=== PATIENT | female | born 1940 | race Caucasian/White ===

== ENCOUNTER 2020-03-04 09:23 | Outpatient (REF) | payer MEDICARE, OTHER, SELFPAY ==
[2020-03-04 11:41] LABS: Estimated Average Glucose 111 mg/dL; Hemoglobin A1c % 5.5 %
[2020-03-04 11:54] LABS: Alanine Aminotransferase 12 U/L (0-31); Albumin Level 3.5 g/dL (3.5-5.0); Alkaline Phosphatase 87 U/L (39-117); Anion Gap 17 (12-20); Aspartate Amino Transferase 21 U/L (5-31); Bilirubin Total 0.4 mg/dL (0.0-1.0); Blood Urea Nitrogen 36 mg/dL (9-16); Calcium 8.7 mg/dL (8.4-10.2); Carbon Dioxide 18 mmol/L (22-29); Chloride 110 mmol/L (96-108); Cholesterol 117 mg/dL; Estimated Glomerular Filt Rate 34; Glucose Fasting 97 mg/dL (60-99); HDL Cholesterol 41 mg/dL; LDL Cholesterol Calculated 62 mg/dl; Potassium 4.6 mmol/l (3.3-5.1); Sodium 140 mmol/L (135-145); Total Protein 6.8 g/dL (6.5-8.0); Triglycerides 71 mg/dL
== END 2020-03-04 09:24 | disposition home or self-care (01) ==
LOC: HO.HMGCLDS 09:23
PROVIDERS: PCP Internal Medicine; Visit Provider Internal Medicine
DX: I10 Essential (primary) hypertension (principal); I25.2 Old myocardial infarction; E11.9 Type 2 diabetes mellitus without complications; Z78.0 Asymptomatic menopausal state; Z87.19 Personal history of other diseases of the digestive system
CPT/HCPCS: 80053; 80061; 82306; 83036

== ENCOUNTER → 2020-05-10 15:50 | Outpatient (BNVA) | payer MEDICARE, SELFPAY | PROVIDERS: PCP Internal Medicine; Visit Provider Urology | DX: C67.9 Malignant neoplasm of bladder, unspecified (principal); Z87.442 Personal history of urinary calculi | CPT/HCPCS: Q3014 ==

== ENCOUNTER 2020-09-27 20:23 | Observation (INO) | payer OTHER, SELFPAY ==
--- NOTE | ~2020-09-27 | CT_ITS ---
EXAMINATION: CT HEAD WITHOUT CONTRAST CT CERVICAL SPINE WITHOUT CONTRAST CLINICAL INFORMATION: Neck pain. Syncope. COMPARISON: None. TECHNIQUE: Imaging was performed from the skull base to vertex without intravenous administration of contrast. In addition, helical noncontrast CT imaging was acquired through the cervical spine and source images were reviewed along with axial reconstructions and sagittal and coronal MPRs. [This CT examination was performed using dose optimization techniques as appropriate, variously including the following: *Automated exposure control *Adjustment of mA and/or kV according to patient size (this includes techniques or standardized protocols for targeted exams where dose is matched to indication/reason for exam; i.e. extremities or head) *Use of iterative reconstruction technique] DLP: 1608 mGy-cm FINDINGS: HEAD: No intracranial mass, hemorrhage, or midline shift is visualized. There is age-appropriate mild atrophy with prominence of the ventricles and the sulci . There are vascular calcification of the internal carotid arteries bilaterally. No extra-axial collections are identified. The paranasal sinuses and mastoid air cells are well aerated. CERVICAL SPINE: There is no evidence of acute cervical spine fracture. Vertebral bodies remain normal in height. Cervical vertebrae have normal alignment. There is advanced multilevel degenerative spondylosis of the cervical spine with disc height narrowing and endplate spurs and facet joint arthrosis. There is bony fusion C5-C7 vertebral bodies. 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 Posterior spur encroaches into the neural foramina impressing on the right anterior aspect of the thecal sac and narrowing the central canal at C5-C6. The right neural foramina is narrowed at C4-C5, C5-C6 by this posterior spur as well as the facet joint arthrosis No pre- or paravertebral soft tissue abnormality is identified. Limited assessment of the lung apices is unremarkable. CT/CT cervical spine wo con IMPRESSION: 1. No acute intracranial pathology. 2. No CT evidence of acute cervical spine fracture or traumatic subluxation
--- NOTE | ~2020-09-27 | XR_ITS ---
EXAMINATION: PORTABLE CHEST 1 VIEW CLINICAL INFORMATION: syncope . COMPARISON: 04/20/2016. TECHNIQUE: Portable frontal view of the chest was obtained. FINDINGS: Lungs well-expanded with minimal linear basilar atelectasis. No superimposed focal infiltrate, effusion, edema, or pneumothorax. Cardiac and mediastinal silhouettes within normal limits for this portable technique. XR/XR chest 1V IMPRESSION: No evidence of acute disease.
[2020-09-27 20:28] VITALS: BP 135/43; PULSE 75; RESP 24; TEMP 36.5; O2SAT 96; BMI 47.0
--- NOTE | 2020-09-27 20:55 | ECG_ITS ---
Test Reason : FALL Blood Pressure : / mmHG Vent. Rate : 073 BPM Atrial Rate : 073 BPM P-R Int : 156 ms QRS Dur : 080 ms QT Int : 378 ms P-R-T Axes : 028 -35 021 degrees QTc Int : 416 ms Normal sinus rhythm Left axis deviation Cannot rule out Anterior infarct (cited on or before 20-APR-2016) Abnormal ECG When compared with ECG of 10-OCT-2016 15:50, No significant change was found Referred By: Markel Juarez Electronically Signed By:KIKE HACKETT MD
--- NOTE | 2020-09-27 20:57 | ED_ITS ---
HPI - Syncope General Chief Complaint: Dizziness Stated Complaint: DIZZINESS,FALL,-LOC,-HS,-BACK/NECK PAIN,-THINNERS Time Seen by Provider: 09/27/20 20:55 Source: patient and EMS Mode of arrival: EMS Limitations: no limitations History of Present Illness HPI narrative: 80-year-old female came in by ambulance for evaluation after syncopal episode and fall. 80-year-old female came in for symptoms of lightheadedness and feeling that she is going to pass out, patient started to symptoms for the past 4 weeks after go tten her 2nd dose of COVID 19 vaccination last months. Patient yesterday was in the bathroom when she stood up and passed out patient refused to come to the hospital yesterday. Today patient was walking felt lightheadedness and very unsteady on her feet and patient fell down, patient decline losing consciousness but not sure if she lost this for a very short brief of time. Patient was able to ease her fall by using her hands, patient declined chest pain, shortness of breath. Patient documented that she hit the back of her head and the neck after she fell today complaining of some neck pain. Related Data Home Medications Medication Instructions Recorded Confirmed amlodipine 2.5 mg tablet 2.5 mg PO TID 02/26/20 09/27/20 metoprolol tartrate 50 mg tablet 50 mg PO BID 02/26/20 09/27/20 Previous Rx's Medication Instructions Recorded Juxta Compression wraps #2 ea NS 05/27/20 Allergies Allergy/AdvReac Type Severity Reaction Status Date / Time levofloxacin [From LEVAQUIN] AdvReac Intermediate MUSCLE/JOINT Verified 03/04/20 08:43 PAIN hydromorphone [Dilaudid] AdvReac Unknown vomiting Verified 03/04/20 08:43 Review of Systems Review of Systems: All other systems are reviewed and are negative Constitutional: Reports as per HPI and Reports no additional constitutional complaints Eyes: Reports as per HPI and Reports no additional eye complaints Reports system reviewed and no additional complaints, except as documented Cardiovascular: Reports as per HPI and Reports no additional cardiovascular complaints Respiratory: Reports as per HPI and Reports no additional respiratory complaints Gastrointestinal: Reports as per HPI and Reports no additional gastrointestinal complaints Genitourinary: Reports no additional female genitourinary complaints Musculoskeletal: Reports no additional musculoskeletal complaints Skin/Breast: Reports system reviewed and no additional complaints, except as docu Psychiatric: Reports no additional psychiatric complaints Endocrine: Reports no additional endocrine complaints Hematologic/Lymphatic: Reports no additional hematologic/lymphatic complaints Allergic/Immunologic: Reports no additional allergic/immunologic complaints Reports system reviewed and no additional complaints, except as documented and Reports Abnormal speech present [facility] Past Medical History Medical History Controlled diabetes mellitus type II without complication Essential hypertension History of acute cholecystitis History of kidney stones History of non-ST elevation myocardial infarction (NSTEMI) Invasive carcinoma of urinary bladder Postmenopausal Sore on leg Toenail deformity Surgical History S/P urological surgery Family History Family History Father Aneurysm Mother Non Hodgkin's lymphoma Son Hepatitis C Son No problems noted. Brother No problems noted. Brother No problems noted. Daughter No problems noted. Social History Social History Alcohol intake: never Smoking Status: Never smoker Advance Directives: No Advance Directives Information Provided: No Physical Exam Vital Signs: Vital Signs: Last Vital Signs Temp 97.7 F 09/27/20 20:28 Pulse 73 09/27/20 22:31 Resp 20 09/27/20 22:31 BP 128/49 L 09/27/20 22:31 Pulse Ox 96 09/27/20 22:31 Body Mass Index 47.0 Vital signs have been reviewed as appeared to be correct. Blood pressure normal. Heart rate normal. Respiration rate normal. Temperature normal. Oxygen saturation normal. Appearance: Alert. Oriented X3. No acute distress. Head: Normal external exam. Normocephalic. Atraumatic. No Meeks signs noted. No raccoon eyes noted Eyes: PERRLA. EOMI. Conjunctiva and sclera normal. Eyelids normal. ENT: TM's Normal. Pharynx normal. Uvula midline. Moist mucous membranes. No trismus noted. No drooling noted. No muffled voice noted. Neck: Normal inspection. Mild midnight cervical tenderness, no step-off, no deformity. No adenopathy. Thyroid Normal. No meningeal signs. No neck mass noted. CVS: Normal heart rate and rhythm. Heart sound normal. No murmurs noted. Pulses normal throughout. Respiratory: No respiratory distress. Painless inspiration. Breath sounds normal. No wheezes/rales/rhonchi noted. Chest nontender. No accessory muscle usage noted or decreased air movement noted. Abdomen: Soft and nontender. Bowel sounds normal in all 4 quadrants. No distention noted. No organomegaly noted. No visible injury noted. Back: No CVA tenderness. Full range of motion noted. Skin: Skin warm and dry. Normal skin color. Normal skin turgor. No rashes/lesions/lacerations noted. Extremities: Bilateral chronic stasis ulcers on bilateral lower legs. No cellulitic change. Neuro: Oriented X 3. No motor deficit. No sensory deficit. Reflexes normal. Course Course Course Narrative: Assessment and plan. 80-year-old female came in with multiple episodes of syncopal/near syncopal episode with falls. Patient will need to be admitted for cardiac monitoring for 24 hours. Initial labs are unremarkable. MDM - Syncope Lab Data Attestation: I reviewed the patient's lab results. Result diagrams: 09/27/20 21:45 09/27/20 21:45 Labs: Lab Results 09/27/20 09/27/20 09/27/20 Range/Units 21:45 21:45 21:45 WBC 12.0 H (4.8-10.8) X10*3/uL RBC 4.07 L (4.20-5.50) X10*6/uL Hgb 10.8 L (12.0-16.0) g/dl Hct 35.0 L (37-47) % MCV 86.0 (80-98) fL MCH 26.5 L (27.0-33.0) pg MCHC 30.9 L (31.0-35.0) g/dl RDW 15.3 (11.0-16.0) % Plt Count 209 (160-400) X10*3/uL MPV 9.0 L (9.4-12.3) fL Immature Gran % (Auto) 1.3 H (0.0-0.4) % Neut % (Auto) 81.2 H (45-73) % Lymph % (Auto) 7.8 L (20-40) % [place] % (Auto) 8.2 (2-11) % Eos % (Auto) 1.2 (0-4) % Baso % (Auto) 0.3 (0-2) % Lymph # (Auto) 0.9 L (1.2-4.9) X10*3/uL [place] # (Auto) 1.0 (0.1-1.2) X10*3/uL Eos # (Auto) 0.1 (0.0-0.4) X10*3/uL Baso # (Auto) 0.0 (0.0-0.2) X10*3/uL Abs Immat Gran (auto) 0.15 H (0.00-0.03) X10*3/uL Absolute Neuts (auto) 9.8 H (2.0-8.3) X10*3/uL Absolute Nucleated RBC 0.000 (0.0-0.012) X10*3/uL Nucleated RBC % (auto) 0.0 (0.0-0.2) /100WBC Sodium 137 (135-145) mmol/L Potassium 4.1 (3.3-5.1) mmol/L Chloride 107 (96-108) mmol/L Carbon Dioxide 22 (22-29) mmol/L Anion Gap 12 (12-20) BUN 31 H (9-16) mg/dL Creatinine 1.68 H (0.5-1.4) mg/dL Estim Creat Clear Calc 39.8 Estimated GFR 29 Random Glucose 143 H (60-115) mg/dL Calcium 8.8 (8.4-10.2) mg/dL Total Bilirubin 0.6 (0.0-1.0) mg/dL Direct Bilirubin 0.3 (0.0-0.5) mg/dL AST 29 (5-31) U/L ALT 23 (0-31) U/L Alkaline Phosphatase 81 (39-117) U/L Troponin I High Sens 5.2 (<3.5-17.0) ng/L B-Natriuretic Peptide (<100) pg/mL Total Protein 6.3 L (6.5-8.0) g/dL Albumin 3.0 L (3.5-5.0) g/dL Lipase 28 (8-78) U/L COVID-19 ([facility]) (Negative) COVID-19 Clin Com 09/27/20 09/27/20 Range/Units 21:45 21:45 WBC (4.8-10.8) X10*3/uL RBC (4.20-5.50) X10*6/uL Hgb (12.0-16.0) g/dl Hct (37-47) % MCV (80-98) fL MCH (27.0-33.0) pg MCHC (31.0-35.0) g/dl RDW (11.0-16.0) % Plt Count (160-400) X10*3/uL MPV (9.4-12.3) fL Immature Gran % (Auto) (0.0-0.4) % Neut % (Auto) (45-73) % Lymph % (Auto) (20-40) % [place] % (Auto) (2-11) % Eos % (Auto) (0-4) % Baso % (Auto) (0-2) % Lymph # (Auto) (1.2-4.9) X10*3/uL [place] # (Auto) (0.1-1.2) X10*3/uL Eos # (Auto) (0.0-0.4) X10*3/uL Baso # (Auto) (0.0-0.2) X10*3/uL Abs Immat Gran (auto) (0.00-0.03) X10*3/uL Absolute Neuts (auto) (2.0-8.3) X10*3/uL Absolute Nucleated RBC (0.0-0.012) X10*3/uL Nucleated RBC % (auto) (0.0-0.2) /100WBC Sodium (135-145) mmol/L Potassium (3.3-5.1) mmol/L Chloride (96-108) mmol/L Carbon Dioxide (22-29) mmol/L Anion Gap (12-20) BUN (9-16) mg/dL Creatinine (0.5-1.4) mg/dL Estim Creat Clear Calc Estimated GFR Random Glucose (60-115) mg/dL Calcium (8.4-10.2) mg/dL Total Bilirubin (0.0-1.0) mg/dL Direct Bilirubin (0.0-0.5) mg/dL AST (5-31) U/L ALT (0-31) U/L Alkaline Phosphatase (39-117) U/L Troponin I High Sens (<3.5-17.0) ng/L B-Natriuretic Peptide 29 (<100) pg/mL Total Protein (6.5-8.0) g/dL Albumin (3.5-5.0) g/dL Lipase (8-78) U/L COVID-19 ([facility]) Negative (Negative) COVID-19 Clin Com See Note Imaging Data Head/C-spine CT: Radiologist's impression: 1. No acute intracranial pathology. 2. No CT evidence of acute cervical spine fracture or traumatic subluxation Chest x-ray: Radiologist's impression: No evidence of acute disease. Discharge Plan Discharge Clinical Impression: Syncope Patient Disposition: Admitted As Inpatient Prescriptions: No Action (DME) Juxta Compression wraps See Rx Instructions .Route .MEDSUPPLY Qty: 2 RF: 1 amlodipine 2.5 mg tablet 2.5 mg PO TID RF: 0 metoprolol tartrate 50 mg tablet 50 mg PO BID RF: 0
[2020-09-27 21:50] LABS: MANUAL DIFF FLAG NO
[2020-09-27 21:51] LABS: Basophils Percent Auto 0.3 % (0-2); Eosinophils Absolute Auto 0.1 X10*3/uL (0.0-0.4); Eosinophils Percent Auto 1.2 % (0-4); Hemoglobin 10.8 g/dl (12.0-16.0); Imm Gran Abs Auto 0.15 X10*3/uL (0.00-0.03); Imm Gran Pct Auto 1.3 % (0.0-0.4); Lymphocytes Absolute Auto 0.9 X10*3/uL (1.2-4.9); Lymphocytes Percent Auto 7.8 % (20-40); Mean Corpuscular HGB Conc 30.9 g/dl (31.0-35.0); Mean Corpuscular Hemoglobin 26.5 pg (27.0-33.0); Monocytes Percent Auto 8.2 % (2-11); Neutrophils Absolute Auto 9.8 X10*3/uL (2.0-8.3); Neutrophils Percent Auto 81.2 % (45-73); Platelet Count 209 X10*3/uL (160-400); Red Blood Count 4.07 X10*6/uL (4.20-5.50); Red Cell Distribution Width 15.3 % (11.0-16.0)
[2020-09-27 22:12] LABS: COVID-19 Test Negative (Negative)
[2020-09-27 22:20] LABS: Alanine Aminotransferase 23 U/L (0-31); Alkaline Phosphatase 81 U/L (39-117); Anion Gap 12 (12-20); Aspartate Amino Transferase 29 U/L (5-31); Bilirubin Direct 0.3 mg/dL (0.0-0.5); Bilirubin Total 0.6 mg/dL (0.0-1.0); Blood Urea Nitrogen 31 mg/dL (9-16); Calcium 8.8 mg/dL (8.4-10.2); Carbon Dioxide 22 mmol/L (22-29); Chloride 107 mmol/L (96-108); Creatinine Clr Calc Pharmacy 39.8; Estimated Glomerular Filt Rate 29; Glucose Random 143 mg/dL (60-115); Lipase 28 U/L (8-78); Potassium 4.1 mmol/L (3.3-5.1); Sodium 137 mmol/L (135-145); Total Protein 6.3 g/dL (6.5-8.0)
[2020-09-27 22:23] LABS: B Type Natriuretic Peptide 29 pg/mL (<100); Troponin-I High Sensitivity 5.2 ng/L (<3.5-17.0)
[2020-09-27 22:31] VITALS: BP 128/49; PULSE 73; RESP 20; O2SAT 96
--- NOTE | 2020-09-27 23:56 | PC.NURSE ---
hospitalist at bedside
[2020-09-28] VITALS (15 sets, daily range): BP systolic 130–155; BP diastolic 51–66; PULSE 65–122; RESP 12–20; TEMP 36.2–36.8; O2SAT 94–97
--- NOTE | 2020-09-28 01:14 | PC.NURSE ---
Addendum entered by Ashley Garrison 09/28/20 01:51: Right side has XL red area. Skin fragile. Left side has 2 small areas. Cleansed with NS, dried and abd pad placed in folds to limit skin to skin contact. Original Note: Notified Dr Betts of red, moist, yeast smelling wounds under abd folds.
--- NOTE | 2020-09-28 02:58 | PC.NURSE ---
This nurse got patient up to commode. Patient unable to manage bearing weight to stand and pivot without significant support. 2 staff members required to assist patient back into bed.
--- NOTE | 2020-09-28 05:25 | PC.NURSE ---
Purewick applied to patient.
--- NOTE | 2020-09-28 05:30 | PC.NURSE ---
Per son patient normally walks independently. Had 2 falls in the last 48 hours. Patient has not been going to appointments related to her bladder cancer for a while.
--- NOTE | 2020-09-28 06:40 | PC.NURSE ---
Patient insisted she needs to go to the toilet and have a BM. 2 staff max assist to use Seralift. Patient only voided while on toilet and reports feeling to weak to stay on Seralift. Once in room, buttocks cleaned, Lorena applied to buttocks small fissure noted in gluteal cleft. linens changed and patient properly positioned in bed.
[2020-09-28 06:49] LABS: Glucose Urine UA NEG (NEG); Leukocyte Esterase Urine 2+ (NEG); Nitrite Urine POS (NEG); UACC Culture Trigger YES; Urine Blood 2+ (NEG); Urine Ketones NEG (NEG); Urine Protein TRACE MG/DL (NEG-TRACE)
[2020-09-28 06:56] LABS: Appearance Urine CLOUDY; Color Urine YELLOW
--- NOTE | 2020-09-28 07:04 | PM.IMHP ---
History of Present Illness Date of Service: 09/28/20 Chief Complaint: Dizziness, syncope This is a 80-year-old female diabetes, HTN, carcinoma of urinary bladder, presents to the hospital with complaints of dizziness, and 2 episodes of syncope over the past 2 days. Patient reports that she initially had similar symptoms in June after receiving her 2nd dose of the COVID vaccine, which resolved after 3 days, she reports that the same symptoms started again about 2 days ago associated with diarrhea more than 2 times a day, right quadrant abdominal pain, cough, no sputum production, no chest pain, no shortness of breath. She reports that she had 1 episode of syncope yesterday while using the bathroom, she got off the toilet, was standing in all sudden passed out with no prodromal or post ictal symptoms. She also had another episode on the day of presentation while she was standing she passed out and woke up on the floor. Each episode lasted less than a minute. She denies any urinary symptoms, denies any fever or chills, no diarrhea constipation, no lower extremity edema. On arrival to the ED no significant abnormal vitals Labs are significant for, hemoglobin of 10.8, BUN of 31, creatinine of 1.6 with a baseline around 1.4-1.6, UA that is positive for leukocyte esterase, nitrites and WBC, chest x-ray negative for any acute infection Past medical history as below and confirmed with patient Review of Systems Review of Systems: Yes all other systems are reviewed and are negative [facility] Medical History Controlled diabetes mellitus type II without complication Essential hypertension History of acute cholecystitis History of kidney stones History of non-ST elevation myocardial infarction (NSTEMI) Invasive carcinoma of urinary bladder Postmenopausal Sore on leg Toenail deformity Family History Father Aneurysm Mother Non Hodgkin's lymphoma Son Hepatitis C Son No problems noted. Brother No problems noted. Brother No problems noted. Daughter No problems noted. Surgical History S/P urological surgery Social History Alcohol intake: never Smoking Status: Never smoker Use of substances other than those prescribed or required for medical reasons: No Advance Directives: No Advance Directives Information Provided: No Meds Allergies Allergy/AdvReac Type Severity Reaction Status Date / Time levofloxacin [From LEVAQUIN] AdvReac Intermediate MUSCLE/JOINT Verified 03/04/20 08:43 PAIN hydromorphone [Dilaudid] AdvReac Unknown vomiting Verified 03/04/20 08:43 Active Medications: Current Medications Generic Name Dose Route Start Last Admin Trade Name Freq PRN Reason Stop Dose Admin Nystatin 1 appl 09/28/20 09:00 Nystatin Powder 15 Gm Bottle TOPICAL BID [facility] Protocol Pharmacy Consult 1 each 09/27/20 20:55 Consult Rx Perform Med Rec MISCELLANE ONCE PRN Consult order Home Medications Medication Instructions Recorded Confirmed Last Taken Type amlodipine 2.5 mg tablet 2.5 mg PO TID 02/26/20 09/27/20 09/26/20 History metoprolol tartrate 50 mg tablet 50 mg PO BID 02/26/20 09/27/20 09/26/20 History Physical Exam Vital Signs and Narrative: Vital Signs: Last Vital Signs Temp 97.7 F 09/27/20 20:28 Pulse 89 09/28/20 06:42 Resp 16 09/28/20 06:42 BP 144/55 H 09/28/20 04:50 Pulse Ox 97 09/28/20 06:42 Body Mass Index 47.0 Const: General: cooperative and no acute distress Orientation/consciousness: patient oriented x3 Eyes: General: appearance normal, both eyes and all related structures Resp: Effort & Inspection: normal respiratory effort and able to speak in complete sentences Cardio: Rate: regular rate Rhythm: regular rhythm GI: Palpation (GI): Soft to palpation Auscultation: normal bowel sounds Skin: General skin exam: no rashes or lesions noted Neuro: General: patient oriented x3 Cognition (Neuro): normal cognition Extrem: General: Yes normal to inspection and Yes no pedal edema Results Labs CBC and Chem 7: 09/27/20 21:45 09/27/20 21:45 Labs: Laboratory Results - last 24 hr 09/27/20 09/27/20 09/27/20 21:45 21:45 21:45 MCV 86.0 MCH 26.5 L MCHC 30.9 L RDW 15.3 Plt Count 209 MPV 9.0 L Immature Gran % (Auto) 1.3 H Neut % (Auto) 81.2 H Lymph % (Auto) 7.8 L [place] % (Auto) 8.2 Eos % (Auto) 1.2 Baso % (Auto) 0.3 Lymph # (Auto) 0.9 L [place] # (Auto) 1.0 Eos # (Auto) 0.1 Baso # (Auto) 0.0 Abs Immat Gran (auto) 0.15 H Absolute Neuts (auto) 9.8 H Absolute Nucleated RBC 0.000 Nucleated RBC % (auto) 0.0 Anion Gap 12 Estim Creat Clear Calc 39.8 Estimated GFR 29 Random Glucose 143 H Calcium 8.8 Total Bilirubin 0.6 Direct Bilirubin 0.3 AST 29 ALT 23 Alkaline Phosphatase 81 Troponin I High Sens 5.2 B-Natriuretic Peptide Total Protein 6.3 L Albumin 3.0 L Lipase 28 Urine Color Urine Appearance Urine pH Ur Specific [place] Urine Protein Urine Glucose (UA) Urine Ketones Urine Blood Urine Nitrite Ur Leukocyte Esterase COVID-19 ([facility]) COVID-19 [employer] 09/27/20 09/27/20 09/28/20 21:45 21:45 06:34 MCV MCH MCHC RDW Plt Count MPV Immature Gran % (Auto) Neut % (Auto) Lymph % (Auto) [place] % (Auto) Eos % (Auto) Baso % (Auto) Lymph # (Auto) [place] # (Auto) Eos # (Auto) Baso # (Auto) Abs Immat Gran (auto) Absolute Neuts (auto) Absolute Nucleated RBC Nucleated RBC % (auto) Anion Gap Estim Creat Clear Calc Estimated GFR Random Glucose Calcium Total Bilirubin Direct Bilirubin AST ALT Alkaline Phosphatase Troponin I High Sens B-Natriuretic Peptide 29 Total Protein Albumin Lipase Urine Color YELLOW Urine Appearance CLOUDY Urine pH 6.0 Ur Specific [place] 1.020 Urine Protein TRACE Urine Glucose (UA) NEG Urine Ketones NEG Urine Blood 2+ H Urine Nitrite POS H Ur Leukocyte Esterase 2+ H COVID-19 ([facility]) Negative COVID-19 [facility] Com See Note Imaging Radiologist's Impressions: Impressions Cervical Spine CT 09/27/20 20:55 IMPRESSION: 1. No acute intracranial pathology. 2. No CT evidence of acute cervical spine fracture or traumatic subluxation Chest X-Ray 09/27/20 20:55 IMPRESSION: No evidence of acute disease. Head CT 05/18/21 20:56 IMPRESSION: 1. No acute intracranial pathology. 2. No CT evidence of acute cervical spine fracture or traumatic subluxation Assessment and Plan (1) Syncope: Qualifiers: Syncope type: unspecified Qualified Code(s): R55 - Syncope and collapse Status: Acute (2) UTI (urinary tract infection): Status: Acute 80-year-old female with past medical history of hypertension, diabetes presents to the hospital with complaints of syncopal episode found to have UTI # syncope - most likely secondary to UTI versus dehydration in the setting of FERNANDO and CKD - patient has a UTI - was admit to telemetry to rule out cardiogenic reasons - no postictal prodromal symptoms # UTI - UA positive - leukocytosis - no evidence of sepsis - will start on IV ceftriaxone - follow cultures # diabetes mellitus - low-dose sliding scale insulin - diabetic diet # CKD - may have element of FERNANDO as her creatinine was 1.4 on previous admission now 1.68 - will start her on fluids - follow BMP # hypertension - stable - continue amlodipine DVT prophylaxis: Heparin subQ
[2020-09-28 07:10] LABS: Bacteria Urine 2+ /LPF; Mucus Urine 1+ /LPF; Squamous Epithelial Cell Urine 1+ /LPF; WBC Urine TNTC /HPF (0-4)
[2020-09-28] MEDS: cefTRIAXone sodium 1 GM in 0.9 % Sodium Chloride 50 ML IV (07:40)
[2020-09-28 07:42] LABS: Glucose, Whole Blood 137 mg/dL (60-115)
--- NOTE | 2020-09-28 07:48 | PC.NURSE ---
BLOOD SUGAR 137. PT READY FOR TRANSFER.
[2020-09-28 08:54] LABS: Anion Gap 11 (12-20); Blood Urea Nitrogen 29 mg/dL (9-16); Calcium 8.9 mg/dL (8.4-10.2); Carbon Dioxide 21 mmol/L (22-29); Chloride 108 mmol/L (96-108); Creatinine Clr Calc Pharmacy 40.5; Estimated Glomerular Filt Rate 30; Glucose Random 127 mg/dL (60-115); Potassium 4.1 mmol/L (3.3-5.1); Sodium 136 mmol/L (135-145)
--- NOTE | 2020-09-28 08:57 | PC.NURSE ---
report given to Vika AGUIRRE. Pt placed to bedpan, repositioned. Skin care provided. Ready for transport to floor.
--- NOTE | 2020-09-28 10:02 | PM.EVENT ---
Event Note Date of Service: 09/28/20 Event Note: Patient says she is feeling better today, advised her to get out of bed Denies any new urinary complaints Denies any abdominal pain fever or chills Physio: Cvs: [id number], [id number] , no murmur res: clear to auscultation ,no rhonchii or wheezing abd: no rebound or guarding ,nt, bs present. ext pulses present , no cyanosis neuro: axo3 , nonfocal. Assessment and plan coordinated in H&P note: Syncope was thought to be related to dehydration/UTI Patient denies any new symptoms IV antibiotic and follow-up cultures.
[2020-09-28] MEDS: Heparin Sodium,Porcine 5,000 UNIT/ML VIAL 5000 UNIT SUBCUT ×2 (10:03→20:20)
[2020-09-28] MEDS: Metoprolol Tartrate 50 MG TABLET PO ×2 (10:03→20:23)
[2020-09-28] MEDS: Lactated Ringers 1,000 ML 100 ML IVCONT ×2 (10:04→20:20)
[2020-09-28] MEDS: Nystatin Powder 15 GM BOTTLE 1 APPL TOPICAL ×2 (10:04→21:29)
[2020-09-28] MEDS: amLODIPine Besylate 2.5 MG TABLET PO ×3 (10:04→20:24)
[2020-09-28 11:33] LABS: Glucose, Whole Blood 107 mg/dL (60-115)
[2020-09-28 11:47] LABS: Glucose, Whole Blood 125 mg/dL (60-115)
--- NOTE | 2020-09-28 11:53 | MHC.CM.PN ---
OBS NOTICE 09/28/20, EMR REVIEWED, PT ADMITTED AFTER SYNCOPAL EPISODES, PT +UTI AND FERNANDO, REPORTS SHE LIVES ALONE, HER SON FAWN IS ABLE TO HELP IF NEEDED, PT USES A WC FOR DISTANCE BUT WALKS WITH A CANE WITHING HER HOME, PT CHECKS BS'S DAILY AND IS NO LONGER ON DIABETIC MEDICATION DUE TO KIDNEY FX, PT ALSO REPORTED HER LAST A1C WAS 5, PT HAS [facility] WEEKLY FOR WOULD CARE AND MEALS ON WHEELS, PT IS INTERESTED IN A HOME HEALTH AID AND REPORTS [facility] SAID SHE NEEDED TO BE ASSESSED THROUGH HER [facility]. CM WILL REQUEST ASSESSMENT WHEN REFERRAL FOR RESUMP OF CARE TO [facility] IS PLACED. D/C PLAN: HOME W/RESUMP OF WEEKLY [facility], MEALS ON WHEELS AND HOME HEALTH ASSESSMENT. PCP: JENNY, [facility] USHA PACHECO [employer] UNIT OPERATOR TO VERIFY HCP: FAWN PARRA (SON) [phone], COPY REQUESTED
[2020-09-28 16:09] LABS: Glucose, Whole Blood 115 mg/dL (60-115)
--- NOTE | 2020-09-28 17:23 | PM.CNNEP ---
History of Present Illness Reason for Consult Consult date: 09/28/20 Reason for consult: CKD Chief Complaint Chief complaint: Syncope History of Present Illness Narrative: Nesha is a 80-year-old female with diabetes, HTN, carcinoma of urinary bladder as well as CKD 3 presents to the hospital with complaints of dizziness, and 2 episodes of syncope over the past 2 days. She had diarrhea more than 2 times a day with right quadrant abdominal pain, cough, no sputum production, no chest pain, no shortness of breath. She reports that she had 1 episode of syncope yesterday . She also had another episode on the day of presentation while she was standing she passed out and woke up on the floor. She denies any urinary symptoms, denies any fever or chills, no diarrhea constipation, no lower extremity edema. Her serum creatinine was 1.6. She was admitted for further management. Nephrology has been consulted to assist in her clinical care Review of Systems Review of Systems Yes all other systems are reviewed and are negative PMFSH Past Medical History Medical History Controlled diabetes mellitus type II without complication Essential hypertension History of acute cholecystitis History of kidney stones History of non-ST elevation myocardial infarction (NSTEMI) Invasive carcinoma of urinary bladder Postmenopausal Sore on leg Toenail deformity Family History Family History Father Aneurysm Mother Non Hodgkin's lymphoma Son Hepatitis C Son No problems noted. Brother No problems noted. Brother No problems noted. Daughter No problems noted. Surgical History Surgical History S/P urological surgery Social History Social History Alcohol intake: never Smoking Status: Never smoker Smoked in Last 30 Days: No Use of substances other than those prescribed or required for medical reasons: No Advance Directives: No Advance Directives Information Provided: No service: No Current occupational status: retired Meds Allergies Allergy/AdvReac Type Severity Reaction Status Date / Time levofloxacin [From LEVAQUIN] AdvReac Intermediate MUSCLE/JOINT Verified 03/04/20 08:43 PAIN hydromorphone [Dilaudid] AdvReac Unknown vomiting Verified 03/04/20 08:43 Active Medications: Current Medications Generic Name Dose Route Start Last Admin Trade Name [place] PRN Reason Stop Dose Admin Acetaminophen 650 mg 09/28/20 08:01 Acetaminophen 325 Mg Tablet PO Q6H PRN Pain, Mild (Pain Scale 1-3) Amlodipine Besylate 2.5 mg 09/28/20 10:00 09/28/20 15:37 Amlodipine Besylate 2.5 Mg Tablet PO 2.5 mg TID [facility] Administration Protocol Docusate Sodium 100 mg 09/28/20 08:01 Docusate Sodium 100 Mg Capsule PO DAILY PRN Constipation Heparin Sodium (Porcine) 5,000 unit 09/28/20 09:00 09/28/20 10:03 Heparin Sodium,Porcine 5,000 Unit/Ml Vial SUBCUT 5,000 unit Q12H [facility] Administration Ceftriaxone Sodium 1 gm/ 50 mls @ 100 mls/hr 09/28/20 07:15 09/28/20 09:51 Sodium Chloride IV Infused Q24H [facility] Infusion Lactated Ringer's 1,000 mls @ 100 mls/hr 09/28/20 07:15 09/28/20 16:18 Lr IVCONT Not Given .Q10H [facility] Insulin Human Lispro 0 unit 09/28/20 07:30 09/28/20 16:28 Insulin Lispro 100 Unit/Ml 3 Ml Vial SUBCUT Not [facility] Protocol Metoprolol Tartrate 50 mg 09/28/20 09:00 09/28/20 10:03 Metoprolol Tartrate 50 Mg Tablet PO 50 mg BID [facility] Administration Protocol Nystatin 1 appl 09/28/20 09:00 09/28/20 10:04 Nystatin Powder 15 Gm Bottle TOPICAL 1 appl BID [facility] Administration Protocol Ondansetron HCl 4 mg 09/28/20 09:35 Ondansetron Hcl 4 Mg/2 Ml Vial IVPUSH Q8H PRN Nausea and Vomiting Pharmacy Consult 1 each 09/27/20 20:55 Consult Rx Perform Med Rec MISCELLANE ONCE PRN Consult order Sodium Chloride 3 ml 09/28/20 08:01 09/28/20 15:13 0.9 % Sodium Chloride Flush 3 Ml Syringe IVFLUSH Not Given QSHIFT [facility] Home Medications Medication Instructions Recorded Confirmed Last Taken Type amlodipine 2.5 mg tablet 7.5 mg PO DAILY 10/09/28/20 09/26/20 History metoprolol tartrate 50 mg tablet 50 mg PO BID 02/26/20 09/27/20 09/26/20 History Physical Exam Vital Signs: Last Vital Signs Temp 97.7 F 09/28/20 15:27 Pulse 74 09/28/20 15:37 Resp 19 09/28/20 15:27 BP 135/60 09/28/20 15:37 Pulse Ox 94 09/28/20 15:27 Body Mass Index 47.0 Const General: no acute distress Orientation/consciousness: patient oriented x3 Eyes EOM: EOMs intact bilaterally Neck Neck: Yes supple Resp Auscultation: diminished lung sounds Cardio Jugular venous distension: no JVD GI Palpation (GI): Soft to palpation Neuro General: patient oriented x3 and moves all extremities Results Lab Results Result Diagrams: 09/27/20 21:45 09/28/20 08:09 Lab results: Chemistry 09/27/20 09/28/20 21:45 08:09 Sodium 137 136 Potassium 4.1 4.1 Carbon Dioxide 22 21 L BUN 31 H 29 H Creatinine 1.68 H 1.65 H Calcium 8.8 8.9 Hematology 09/27/20 21:45 WBC 12.0 H Hgb 10.8 L Plt Count 209 Urinalysis 09/28/20 06:34 Urine Color YELLOW Urine Appearance CLOUDY Urine pH 6.0 Ur Specific [place] 1.020 Urine Protein TRACE Urine Glucose (UA) NEG Urine Ketones NEG Urine Blood 2+ H Urine Nitrite POS H Ur Leukocyte Esterase 2+ H Urine RBC 15-29 H Urine WBC TNTC H Ur Squamous Epith Cells 1+ Assessment and Plan (1) CKD (chronic kidney disease), stage III: Problem details: Has CKD for a long time. Renal functions are close to baseline BP needs to be kept at goal No NSAID's. All medications need to dosed for GFR Concur with rest of current management Shall closely follow up Status: Acute Procedures Date of Service Date of Service: 09/28/20
[2020-09-28 20:21] LABS: Glucose, Whole Blood 126 mg/dL (60-115)
[2020-09-28] MEDS: Acetaminophen 325 MG TABLET 650 MG PO (20:21)
[2020-09-29] VITALS (7 sets, daily range): BP systolic 129–143; BP diastolic 60–69; PULSE 72–110; RESP 16–19; TEMP 36–37; O2SAT 94–96
[2020-09-29] MEDS: Lactated Ringers 1,000 ML 100 ML IVCONT (06:34)
[2020-09-29] MEDS: cefTRIAXone sodium 1 GM in 0.9 % Sodium Chloride 50 ML IV (06:47)
[2020-09-29 06:49] LABS: Basophils Percent Auto 0.4 % (0-2); Eosinophils Absolute Auto 0.2 X10*3/uL (0.0-0.4); Eosinophils Percent Auto 2.3 % (0-4); Hematocrit 41.5 % (37-47); Hemoglobin 12.6 g/dl (12.0-16.0); Imm Gran Pct Auto 2.2 % (0.0-0.4); Lymphocytes Absolute Auto 1.1 X10*3/uL (1.2-4.9); Lymphocytes Percent Auto 12.3 % (20-40); MANUAL DIFF FLAG SCAN; Mean Corpuscular HGB Conc 30.4 g/dl (31.0-35.0); Mean Corpuscular Hemoglobin 26.7 pg (27.0-33.0); Mean Corpuscular Volume 87.9 fL (80-98); Mean Platelet Volume 10.6 fL (9.4-12.3); Monocytes Absolute Auto 0.8 X10*3/uL (0.1-1.2); Monocytes Percent Auto 9.1 % (2-11); Neutrophils Absolute Auto 6.7 X10*3/uL (2.0-8.3); Neutrophils Percent Auto 73.7 % (45-73); PLT CLUMP 1; Red Blood Count 4.72 X10*6/uL (4.20-5.50); Red Cell Distribution Width 15.1 % (11.0-16.0); SCAN SMEAR FLAG 1
[2020-09-29 07:07] LABS: Anion Gap 13 (12-20); Blood Urea Nitrogen 28 mg/dL (9-16); Calcium 8.8 mg/dL (8.4-10.2); Carbon Dioxide 20 mmol/L (22-29); Chloride 107 mmol/L (96-108); Creatinine Clr Calc Pharmacy 43.1; Estimated Glomerular Filt Rate 32; Glucose Random 94 mg/dL (60-115); Potassium 4.3 mmol/L (3.3-5.1); Sodium 136 mmol/L (135-145)
[2020-09-29 07:37] LABS: Platelet Count 185 X10*3/uL (160-400); SLIDE REVIEW VERIFIED; White Blood Count 9.1 X10*3/uL (4.8-10.8)
[2020-09-29 07:51] LABS: Glucose, Whole Blood 94 mg/dL (60-115)
[2020-09-29] MEDS: Heparin Sodium,Porcine 5,000 UNIT/ML VIAL 5000 UNIT SUBCUT ×2 (07:53→20:44)
[2020-09-29] MEDS: Metoprolol Tartrate 50 MG TABLET PO ×2 (07:55→20:45)
[2020-09-29] MEDS: amLODIPine Besylate 2.5 MG TABLET PO ×3 (07:55→20:45)
[2020-09-29] MEDS: Nystatin Powder 15 GM BOTTLE 1 APPL TOPICAL ×2 (07:56→20:46)
--- NOTE | 2020-09-29 10:10 | PM.PNNEP ---
Subjective Subjective Date of Service: 09/29/20 Interval history: Events noted. No new issues. Still feels weak. All recent data reviewed Physical Exam Vital Signs: Vital Signs: Last Vital Signs Temp 98.6 F 09/29/20 07:25 Pulse 73 09/29/20 09:33 Resp 19 09/29/20 07:25 BP 142/65 H 09/29/20 09:33 Pulse Ox 95 09/29/20 09:33 Body Mass Index 47.0 Const: General: no acute distress Orientation/consciousness: patient oriented x3 Eyes: EOM: EOMs intact bilaterally Neck: Neck: Yes supple Resp: Auscultation: diminished lung sounds Cardio: Jugular venous distension: no JVD GI: Palpation (GI): Soft to palpation Neuro: General: patient oriented x3 and moves all extremities Objective Data Labs CBC & Chem 7: 09/29/20 06:12 09/29/20 06:12 Labs: Laboratory Results - last 24 hr 09/28/20 09/28/20 09/28/20 09:42 11:27 16:03 WBC RBC Hgb Hct MCV MCH MCHC RDW Plt Count MPV Immature Gran % (Auto) Neut % (Auto) Lymph % (Auto) [place] % (Auto) Eos % (Auto) Baso % (Auto) Lymph # (Auto) [place] # (Auto) Eos # (Auto) Baso # (Auto) Abs Immat Gran (auto) Absolute Neuts (auto) Absolute Nucleated RBC Nucleated RBC % (auto) Smear Tech's Comments Sodium Potassium Chloride Carbon Dioxide Anion Gap BUN Creatinine Estim Creat Clear Calc Estimated GFR POC Glucose 125 H 107 115 Random Glucose Calcium 09/28/20 09/29/20 09/29/20 20:17 06:12 06:12 WBC 9.1 RBC 4.72 Hgb 12.6 Hct 41.5 MCV 87.9 MCH 26.7 L MCHC 30.4 L RDW 15.1 Plt Count 185 MPV 10.6 Immature Gran % (Auto) 2.2 H Neut % (Auto) 73.7 H Lymph % (Auto) 12.3 L [place] % (Auto) 9.1 Eos % (Auto) 2.3 Baso % (Auto) 0.4 Lymph # (Auto) 1.1 L [place] # (Auto) 0.8 Eos # (Auto) 0.2 Baso # (Auto) 0.0 Abs Immat Gran (auto) 0.20 H Absolute Neuts (auto) 6.7 Absolute Nucleated RBC 0.000 Nucleated RBC % (auto) 0.0 Smear Tech's Comments VERIFIED Sodium 136 Potassium 4.3 Chloride 107 Carbon Dioxide 20 L Anion Gap 13 BUN 28 H Creatinine 1.55 H Estim Creat Clear Calc 43.1 Estimated GFR 32 POC Glucose 126 H Random Glucose 94 Calcium 8.8 09/29/20 07:23 WBC RBC Hgb Hct MCV MCH MCHC RDW Plt Count MPV Immature Gran % (Auto) Neut % (Auto) Lymph % (Auto) [place] % (Auto) Eos % (Auto) Baso % (Auto) Lymph # (Auto) [place] # (Auto) Eos # (Auto) Baso # (Auto) Abs Immat Gran (auto) Absolute Neuts (auto) Absolute Nucleated RBC Nucleated RBC % (auto) Smear Tech's Comments Sodium Potassium Chloride Carbon Dioxide Anion Gap BUN Creatinine Estim Creat Clear Calc Estimated GFR POC Glucose 94 Random Glucose Calcium Microbiology Microbiology Results: Microbiology 09/28/20 Unknown Urine clean catch - Clean Catch Midstream Urine Culture - Preliminary Culture in progress. Assessment & Plan Assessment and plan (1) CKD (chronic kidney disease), stage III: Problem details: Has CKD for a long time. Renal functions are close to baseline BP needs to be kept at goal No NSAID's. All medications need to dosed for GFR Concur with rest of current management Shall arrange close office follow up when D/Eric Status: Acute Time Spent With Patient Time: Total time spent is greater than 50% in coordination of care (as documented) at patient's floor/unit and/or counseling patient: Procedures Date of Service Date of Service: 09/29/20
[2020-09-29 11:53] LABS: Glucose, Whole Blood 123 mg/dL (60-115)
--- NOTE | 2020-09-29 15:29 | PM.DS ---
DS: Providers Provider Date of Service: 10/01/20 Date of admission: 09/28/20 00:25 Primary care physician: Unknown Physician Consults: 09/28/20 09:50 Consult to Nephrology Routine Consulting Provider: Georges Guerrier Reason for consultation: ? agustina vs ckd DS: Diagnosis Discharge Diagnosis (1) CKD (chronic kidney disease), stage III: Status: Acute DS: Medications Discharge Medications Home Medications: Home Medications Medication Instructions Recorded Confirmed amlodipine 2.5 mg tablet 7.5 mg PO DAILY 02/26/20 09/28/20 metoprolol tartrate 50 mg tablet 50 mg PO BID 02/26/20 09/27/20 Previous Rx's Medication Instructions Recorded Juxta Compression wraps #2 ea NS 05/27/20 DS: Summary Hospital Course Hospital Course: Date of service:09/30/20 80-year-old female diabetes, HTN, carcinoma of urinary bladder, presents to the hospital with complaints of dizziness, and 2 episodes of syncope over the past 2 days. Patient reports that she initially had similar symptoms in June after receiving her 2nd dose of the COVID vaccine, which resolved after 3 days, she reports that the same symptoms started again about 2 days ago associated with diarrhea more than 2 times a day, right quadrant abdominal pain, cough, no sputum production, no chest pain, no shortness of breath. She reports that she had 1 episode of syncope yesterday while using the bathroom, she got off the toilet, was standing in all sudden passed out with no prodromal or post ictal symptoms. She also had another episode on the day of presentation while she was standing she passed out and woke up on the floor. Each episode lasted less than a minute. She denies any urinary symptoms, denies any fever or chills, no diarrhea constipation, no lower extremity edema. On arrival to the ED no significant abnormal vitals Labs are significant for, hemoglobin of 10.8, BUN of 31, creatinine of 1.6 with a baseline around 1.4-1.6, UA that is positive for leukocyte esterase, nitrites and WBC, chest x-ray negative for any acute infection. Hospital Course problem moreno section: 80-year-old female with past medical history of hypertension, diabetes presents to the hospital with complaints of syncopal episode found to have UTI 1. syncope: Patient came with probable syncope -thought to be related to probable dehydration/UTI: telemtry seems fine ,Started on hydration and antibiotics seems to be improved, currently asymptomatic. 2.CKD moreno: She is CKD stage 3 at least. monitor BMP in the rehab and further management as per rehab. follow up with nephrology outpatiently. 3. diabetes mellitus fs running 100-125 range - diabetic diet Monitor hemoglobin A1c outpatient and further management as per rehab. will avoid dm meds for now with above fs. Above management discussed with the patient in detail length she understand and in agreement with the above plan, time spent 50 minutes and 50% time spent on counseling. Significant findings: As above. Procedures performed: None. Treatment and response: As above. Complications: None. Time Spent with Patient Time attestation: Total time spent providing and/or coordinating discharge services: Discharge coordination time: Greater than 30 minutes Quality: Stroke Does the patient have a stroke diagnosis?: No Physical Exam Vital Signs: Vital Signs: Vitals: Bp:133/54mmhg RR:20/min pulse:70/min o2 sats:95 % on air Physical exam: Constitutional:not in acute distress. Cvs: [id number], [id number] , no murmur res: clear to auscultation ,no rhonchii or wheezing abd: no rebound or guarding ,nt, bs present. ext pulses present , no cyanosis neuro: axo3 , nonfocal. DS: Data Data Completed and Pending Labs on day of discharge: Laboratory Results - last 24 hr 09/28/20 09/28/20 09/29/20 16:03 20:17 06:12 WBC 9.1 RBC 4.72 Hgb 12.6 Hct 41.5 MCV 87.9 MCH 26.7 L MCHC 30.4 L RDW 15.1 Plt Count 185 MPV 10.6 Immature Gran % (Auto) 2.2 H Neut % (Auto) 73.7 H Lymph % (Auto) 12.3 L [place] % (Auto) 9.1 Eos % (Auto) 2.3 Baso % (Auto) 0.4 Lymph # (Auto) 1.1 L [place] # (Auto) 0.8 Eos # (Auto) 0.2 Baso # (Auto) 0.0 Abs Immat Gran (auto) 0.20 H Absolute Neuts (auto) 6.7 Absolute Nucleated RBC 0.000 Nucleated RBC % (auto) 0.0 Smear Tech's Comments VERIFIED Sodium Potassium Chloride Carbon Dioxide Anion Gap BUN Creatinine Estim Creat Clear Calc Estimated GFR POC Glucose 115 126 H Random Glucose Calcium 09/29/20 09/29/20 09/29/20 06:12 07:23 11:18 WBC RBC Hgb Hct MCV MCH MCHC RDW Plt Count MPV Immature Gran % (Auto) Neut % (Auto) Lymph % (Auto) [place] % (Auto) Eos % (Auto) Baso % (Auto) Lymph # (Auto) [place] # (Auto) Eos # (Auto) Baso # (Auto) Abs Immat Gran (auto) Absolute Neuts (auto) Absolute Nucleated RBC Nucleated RBC % (auto) Smear Tech's Comments Sodium 136 Potassium 4.3 Chloride 107 Carbon Dioxide 20 L Anion Gap 13 BUN 28 H Creatinine 1.55 H Estim Creat Clear Calc 43.1 Estimated GFR 32 POC Glucose 94 123 H Random Glucose 94 Calcium 8.8 Preliminary micro results at discharge 09/28/20 Unknown Urine Culture - Preliminary Urine clean catch - Clean Catch Midstream Culture in progress. Discharge Plan Discharge Patient Disposition: Home, Self-Care Discharge Diagnosis: CKD, uti, syncope Referrals: Physician,Unknown [Primary Care Provider] - 1 Week Discharge Medications: New docusate sodium 100 mg Capsule 100 mg PO DAILY PRN (Reason: Constipation) Qty: 30 RF: 0 nystatin 100,000 unit/gram Powder 1 appl topical BID Qty: 5 RF: 0 cefuroxime axetil 250 mg tablet 250 mg PO Q12H Qty: 10 RF: 0 Continued amlodipine 2.5 mg tablet 7.5 mg PO DAILY RF: 0 metoprolol tartrate 50 mg tablet 50 mg PO BID RF: 0 No Action (DME) Juxta Compression wraps See Rx Instructions .Route .MEDSUPPLY Qty: 2 RF: 1 Discharge Orders: Discharge Order (Routine); Ordered 09/29/20 Ordered By: Sarah Bailey Diet: advance to usual diet Activity on Discharge: As tolerated Stand Alone Forms: Patient Portal Discharge page Care Plan Goals: Patient came with probable syncope -thought to be related to probable dehydration/UTI: Started on hydration and antibiotics seems to be improved, currently asymptomatic. CKD moreno: She is CKD stage 3 at least. monitor BMP in the rehab and further management as per rehab. Health Concerns: As above. Plan of Treatment: As above. Assessment: As above. Discharge Date/Time: 09/30/20 11:21 Vital Signs 09/27/20 20:28 09/27/20 22:31 09/28/20 00:07 09/28/20 02:24 09/28/20 04:50 09/28/20 06:42 09/28/20 07:50 09/28/20 09:45 09/28/20 10:03 09/28/20 10:04 09/28/20 11:24 09/28/20 15:27 09/28/20 15:37 09/28/20 19:23 09/28/20 20:23 09/28/20 20:24 09/28/20 23:51 09/29/20 03:22 09/29/20 07:25 09/29/20 09:33 09/29/20 11:20 09/29/20 15:32 09/29/20 19:40 09/29/20 20:45 09/29/20 20:45 09/30/20 00:00 09/30/20 03:32 09/30/20 07:03 Height 5 ft 7 in Weight 136.078 kg BMI 47.0 BP 135/43 L 128/49 L 132/57 L 144/55 H 144/51 H 134/64 134/64 134/64 130/60 135/60 135/60 143/66 H 143/66 H 143/66 H 155/66 H 130/66 142/65 H 142/65 H 129/60 143/67 H 134/69 134/69 134/69 149/85 H 133/54 L Position Semi Thompson's Semi Thompson's Semi Thompson's Supine Respiration 24 H 20 20 16 16 16 12 20 20 19 19 16 17 19 18 16 18 16 18 20 Pulse 75 73 114 H 81 89 92 122 H 122 H 122 H 76 74 74 79 79 79 65 72 73 73 104 H 108 H 110 H 110 H 110 H 103 H 70 Temp 97.7 F 97.4 F 98.0 F 98.2 F 97.7 F 97.1 F 97.5 F 97.1 F 98.6 F 97.5 F 96.8 F 96.8 F 98.9 F 98 F Temp Source Oral Oral Temporal Artery Scan Temporal Artery Scan Temporal Artery Scan Temporal Artery Scan Temporal Artery Scan Temporal Artery Scan Temporal Artery Scan Temporal Artery Scan Temporal Artery Scan Tympanic Temporal Artery Scan Oral Pulse Oximetry (%) 96 96 96 96 97 95 95 94 94 95 96 95 95 95 94 96 95 98 95
[2020-09-29] MEDS: 0.9 % Sodium Chloride Flush 3 ML SYRINGE IVFLUSH (15:41)
--- NOTE | 2020-09-29 16:19 | MHC.CM.PN ---
PT DISCHARGING TODAY AT 5:30PM TO [address] IN [place] FOR STR DUE TO [place] NOT BEING ABLE TO ACCOMMODATE PT, [facility] FOR BLS TRANSPORT. PT'S SON/HCP [facility] NOTIFIED OF CHANGE 4:23PM [phone], NO ANSWER MESSAGE LEFT.
--- NOTE | 2020-09-29 16:52 | PC.NURSE ---
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
--- NOTE | 2020-09-29 18:02 | HO.PM.IMPN ---
Subjective Subjective Date of Service: 09/29/20 Interval History: uti Review of Systems Seems to be feeling better denies any chest pain shortness of breath or dizziness or abdominal pain or fever or chills or Physical Exam Vital Signs: Vital Signs: Last Vital Signs Temp 96.8 F 09/29/20 15:32 Pulse 108 H 09/29/20 15:32 Resp 16 09/29/20 15:32 BP 143/67 H 09/29/20 15:32 Pulse Ox 96 09/29/20 15:32 Body Mass Index 47.0 Physical exam: Cvs: rrr, [id number] , no murmur res: clear to auscultation ,no rhonchii or wheezing abd: no rebound or guarding ,nt, bs present. ext pulses present , no cyanosis neuro: axo3 , nonfocal. Objective Data Current Medications Generic Name Dose Route Start Last Admin Trade Name Freq PRN Reason Stop Dose Admin Acetaminophen 650 mg 09/28/20 08:01 09/28/20 20:21 Acetaminophen 325 Mg Tablet PO 650 mg Q6H PRN Administration Pain, Mild (Pain Scale 1-3) Amlodipine Besylate 2.5 mg 09/28/20 10:00 09/29/20 15:40 Amlodipine Besylate 2.5 Mg Tablet PO 2.5 mg TID [facility] Administration Protocol Docusate Sodium 100 mg 09/28/20 08:01 Docusate Sodium 100 Mg Capsule PO DAILY PRN Constipation Heparin Sodium (Porcine) 5,000 unit 09/28/20 09:00 09/29/20 07:53 Heparin Sodium,Porcine 5,000 Unit/Ml Vial SUBCUT 5,000 unit Q12H [facility] Administration Ceftriaxone Sodium 1 gm/ 50 mls @ 100 mls/hr 09/28/20 07:15 09/29/20 07:57 Sodium Chloride IV Infused Q24H [facility] Infusion Insulin Human Lispro 0 unit 09/28/20 07:30 09/29/20 16:27 Insulin Lispro 100 Unit/Ml 3 Ml Vial SUBCUT Not Given QIDACHS [facility] Protocol Metoprolol Tartrate 50 mg 09/28/20 09:00 09/29/20 07:55 Metoprolol Tartrate 50 Mg Tablet PO 50 mg BID [facility] Administration Protocol Nystatin 1 appl 09/28/20 09:00 09/29/20 07:56 Nystatin Powder 15 Gm Bottle TOPICAL 1 appl BID [facility] Administration Protocol Ondansetron HCl 4 mg 09/28/20 09:35 Ondansetron Hcl 4 Mg/2 Ml Vial IVPUSH Q8H PRN Nausea and Vomiting Pharmacy Consult 1 each 09/27/20 20:55 Consult Rx Perform Med Rec MISCELLANE ONCE PRN Consult order Sodium Chloride 3 ml 09/28/20 08:01 09/29/20 15:41 0.9 % Sodium Chloride Flush 3 Ml Syringe IVFLUSH 3 ml QSHIFT [facility] Administration Labs CBC & Chem 7: 09/29/20 06:12 09/29/20 06:12 Microbiology Microbiology Results: Microbiology 09/28/20 Unknown Urine clean catch - Clean Catch Midstream Urine Culture - Preliminary Culture in progress. Assessment and Plan (1) UTI (urinary tract infection): Status: Acute Assessment and Plan: 80-year-old female with past medical history of hypertension, diabetes presents to the hospital with complaints of syncopal episode found to have UTI 1. syncope:thought to be- most likely secondary to UTI versus dehydration in the setting of FER[place]NDO and CKD - patient has a UTI - was admit to telemetry seems fine - no postictal prodromal symptoms 2. UTI - UA positive - leukocytosis - no evidence of sepsis continue IV ceftriaxone - follow cultures 3. diabetes mellitus - low-dose sliding scale insulin - diabetic diet 4. CKD seems has basleine ckd. stop fluids nephro followin 5.hypertension - stable - continue amlodipine
[2020-09-29 20:38] LABS: Glucose, Whole Blood 124 mg/dL (60-115)
[2020-09-30] VITALS: RESP 16
[2020-09-30] MEDS: 0.9 % Sodium Chloride Flush 3 ML SYRINGE IVFLUSH (00:39)
[2020-09-30 03:32] VITALS: BP 149/85; PULSE 103; RESP 18; TEMP 37.2; O2SAT 98
[2020-09-30 07:03] VITALS: BP 133/54; PULSE 70; RESP 20; TEMP 36.6; O2SAT 95
[2020-09-30 07:28] LABS: Glucose, Whole Blood 120 mg/dL (60-115)
[2020-09-30 07:30] LABS: Glucose, Whole Blood 110 mg/dL (60-115)
[2020-09-30] MEDS: Metoprolol Tartrate 50 MG TABLET PO (08:34)
[2020-09-30] MEDS: amLODIPine Besylate 2.5 MG TABLET PO (08:35)
[2020-09-30] MEDS: Nystatin Powder 15 GM BOTTLE 1 APPL TOPICAL (08:35)
[2020-09-30] MEDS: Heparin Sodium,Porcine 5,000 UNIT/ML VIAL 5000 UNIT SUBCUT (08:35)
[2020-09-30 09:50] LABS: COVID-19 Test Negative (Negative)
== END 2020-09-30 11:21 | disposition home or self-care (01) ==
LOC: HO.ED 23:31 → HO.EDOVER 09-28 00:48 → HO.S3 09-28 05:48
PROVIDERS: Admitting Provider Internal Medicine; Emergency Provider Emergency Medicine; PCP Internal Medicine; Visit Provider Internal Medicine
DX: R55 Syncope and collapse (principal); N39.0 Urinary tract infection, site not specified; N18.30 Chronic kidney disease, stage 3 unspecified; E11.22 Type 2 diabetes mellitus with diabetic chronic kidney disease; I12.9 Hypertensive chronic kidney disease with stage 1 through stage 4 chronic kidney disease, or unspecified chronic kidney disease; I21.4 Non-ST elevation (NSTEMI) myocardial infarction; C67.9 Malignant neoplasm of bladder, unspecified; M54.2 Cervicalgia; R94.31 Abnormal electrocardiogram [ECG] [EKG]; Z88.1 Allergy status to other antibiotic agents; Z88.5 Allergy status to narcotic agent; Z91.81 History of falling; Z20.822 Contact with and (suspected) exposure to COVID-19; Z79.4 Long term (current) use of insulin; Z79.899 Other long term (current) drug therapy
CPT/HCPCS: 36415; 70450; 71045; 72125; 80048; 80076; 81001; 81003; 82947; 83690; 83880; 84484; 85025; 87086; 87635; 93005; 96361; 96365; 96366; 96375; 97163; 99218; 99285; J0696

== ENCOUNTER 2020-11-20 15:01 | Inpatient (IN) | payer OTHER, MEDICARE, SELFPAY ==
--- NOTE | ~2020-11-20 | US_ITS ---
EXAMINATION: US VENOUS ULTRASOUND WITH DOPPLER LOWER EXTREMITY, BILATERAL CLINICAL INFORMATION: Bilateral leg pain COMPARISON: None TECHNIQUE: Ultrasound of the deep veins is performed from the hip to the calf with compression sonography and color and pulse Doppler assessment. Spectral analysis with color-flow imaging is performed. FINDINGS: Exam limited by body habitus. Patient declined examination of the popliteal vein region. Patient could not tolerate compressions on left leg. RIGHT: Imaged portions of the right lower extremity including the common femoral vein, superficial femoral vein, greater saphenous vein, profunda vein have no evidence of deep vein thrombosis. Limited examination of the posterior tibial vein. LEFT: Imaged portions of left lower extremity demonstrate no evidence of deep time fibrosis. This includes the common femoral vein, superficial femoral vein, greater saphenous vein, and profunda vein. Limited examination of the posterior tibial vein. If the patient's symptoms persist, followup ultrasound in 5 days 7 days might be of value to exclude proximal propagation from a non-visualized calf vein. US/US venous duplex LE BI IMPRESSION: Exam is limited. No evidence of deep vein thrombosis in the imaged portions of the thigh.
--- NOTE | ~2020-11-20 | XR_ITS ---
EXAMINATION: XR CHEST CLINICAL INFORMATION: SOB. COMPARISON: None TECHNIQUE: Frontal view of the chest was obtained. FINDINGS: No significant abnormality is noted involving the heart, lungs, mediastinum, bony thorax or soft tissues. XR/XR chest 1V IMPRESSION: Hypoexpanded lungs without acute process.
--- NOTE | ~2020-11-20 | CT_ITS ---
EXAMINATION: CT ABDOMEN AND PELVIS WITHOUT CONTRAST CLINICAL INFORMATION: Elevated LFTs. Hypercalcemia. History of bladder cancer. COMPARISON: CT scan abdomen pelvis October 07, 2016 TECHNIQUE: Multidetector volumetric imaging was performed from the superior aspect of the liver through the pubic symphysis. Sagittal and coronal reformatted images were obtained on the technologist's workstation. This CT examination was performed using dose optimization techniques as appropriate, variously including the following: *Automated exposure control *Adjustment of mA and/or kV according to patient size (this includes techniques or standardized protocols for targeted exams where dose is matched to indication/reason for exam; i.e. extremities or head) *Use of iterative reconstruction technique DLP: 1737 mGy-cm FINDINGS: There is artifact from imaging with the patient's arms at side. LUNG BASES: The visualized lung bases are unremarkable. LIVER, GALLBLADDER, AND BILIARY TREE: The liver is normal in size, shape, and attenuation. No focal hepatic lesion or biliary ductal dilatation is present. Small calcified gallstone in the gallbladder. No edema of the gallbladder and no bile duct dilatation. PANCREAS: Unremarkable. SPLEEN: Unremarkable. ADRENAL GLANDS: Unremarkable. KIDNEYS AND URETERS: Right kidney: Chronic marked hydronephrosis of the right kidney. Redemonstration of dilated renal pelvis and calyces and right hydroureter to the ureterovesical junction unchanged since CAT scan of October 07, 2016. There is increase cortical thinning since prior CAT scan. There are multiple renal cysts now present in the right kidney. There is a nonobstructive 6 mm stone in lower pole of right kidney. Left kidney: There is significant hydronephrosis of left kidney with distention of renal pelvis calyces and left-sided hydroureter to the ureterovesical junction. This is new since CAT scan of 2016. There is interval development of thickening of the cortex of left kidney since prior CAT scan. There is no renal or ureteral calculus. BLADDER: History of bladder cancer. No bladder calculus or mass. GASTROINTESTINAL TRACT: There are scattered diverticula of the sigmoid colon and left colon. There is no diverticulitis. There is no bowel wall thickening /edema. There is no bowel obstruction. There is a moderate volume of stool in the colon. The appendix is normal . The small bowel loops are unremarkable. The stomach is normal. There is no hiatal hernia. ABDOMINAL WALL: Small fat-containing ventral wall hernia at the lower anterior abdominal wall. This is unchanged since prior CAT scan of 2016. LYMPH NODES: Normal. VASCULAR: Unremarkable. PELVIC VISCERA: Uterus is anteverted. Right adnexal cyst measuring 6.2 x 4.2 x 4 cm. Density measurement of 20 Hounsfield units, mildly complex fluid. This has not substantially changed since CAT scan October 07, 2016. This is almost certainly benign. Annual follow-up pelvic ultrasound recommended. OSSEOUS STRUCTURES: Multilevel degenerative spondylosis of the spine. CT/CT abdomen pelvis wo con IMPRESSION: 1. Bilateral hydronephrosis of kidneys. This appears to be chronic with cortical thinning of each kidney which has progressed since 2017.. The right is worse than the left. No ureteral stone. There is a small nonobstructive stone in the right kidney. 2. Diverticulosis of colon but no acute abnormality of the bowel. No diverticulitis. 3. Cholelithiasis. 4. Right adnexal cyst. This is not substantially changed since prior CAT scan of October 07, 2016. This is almost only benign. Annual follow-up pelvic ultrasound recommended. 5. Ventral wall hernia stable since prior CAT scan 2016.
[2020-11-20 15:04] VITALS: BP 134/77; PULSE 128; RESP 40; TEMP 36.9; O2SAT 93; BMI 43.9
--- NOTE | 2020-11-20 15:04 | ED.GENADULT ---
HPI - General Adult General Chief complaint: General Medical Stated complaint: lethargy/confusion Time Seen by Provider: 11/20/20 16:28 Source: patient and EMS Limitations: altered mental status History of Present Illness HPI narrative: This is a 72-year-old female who has been sent in from her custodial facility for increasing lethargy. The patient has a history of UTI ice and was recently treated with a week of antibiotics for a Pseudomonas UTI, but has not improved. Patient herself is not able to give much history but denies any headache, chest pain, shortness of breath, cough, abdominal pain, urinary symptoms. Related Data Home Medications Medication Instructions Recorded Confirmed metoprolol tartrate 50 mg tablet 37.5 mg PO BID 02/26/20 11/20/20 Previous Rx's Medication Instructions Recorded Juxta Compression wraps #2 ea NS 05/27/20 docusate sodium 100 mg PO DAILY PRN #30 cap 09/29/20 nystatin 1 appl TOPICAL BID #5 g 09/29/20 Allergies Allergy/AdvReac Type Severity Reaction Status Date / Time levofloxacin [From LEVAQUIN] AdvReac Intermediate MUSCLE/JOINT Verified 09/29/20 12:44 PAIN hydromorphone [Dilaudid] AdvReac Unknown vomiting Verified 09/29/20 12:44 Review of Systems Review of Systems: Yes all other systems are reviewed and are negative Constitutional: Constitutional: Reports as per HPI, Reports fever(s) and Reports lethargy Eyes: Eyes: Reports as per HPI and Reports no additional eye complaints ENT: Reports system reviewed and no additional complaints, except as documented, Reports as per HPI, Denies nasal congestion, Denies nasal discharge and Denies sore throat Cardiovascular: Cardiovascular: Reports as per HPI, Denies chest pain and Denies dyspnea Respiratory: Respiratory: Reports as per HPI, Denies cough and Denies dyspnea Gastrointestinal: Gastrointestinal: Reports as per HPI, Denies abdominal pain, Denies diarrhea and Denies vomiting Genitourinary: Genitourinary: Reports as per HPI, Denies hematuria, Denies urinary frequency and Denies dysuria Musculoskeletal: Musculoskeletal: Reports no additional musculoskeletal complaints Integumentary/Breasts: Skin/Breast: Reports as per HPI and Denies rash Neurologic: Reports as per HPI and Denies Sensory deficit (Neuro) Psychiatric: Psychiatric: Reports no additional psychiatric complaints and Reports as per HPI Endocrine: Endocrine: Reports no additional endocrine complaints and Reports as per HPI Hematologic/Lymphatic: Hematologic/Lymphatic: Reports no additional hematologic/lymphatic complaints, Reports as per HPI and Reports other (No peripheral edema) [facility] Past Medical History Medical History (Updated 11/20/20 @ 18:56 by Modesto Talavera MD) Controlled diabetes mellitus type II without complication Essential hypertension History of kidney stones History of non-ST elevation myocardial infarction (NSTEMI) Invasive carcinoma of urinary bladder Postmenopausal Surgical History S/P urological surgery Family History Family History Father Aneurysm Mother Non Hodgkin's lymphoma Son Hepatitis C Son No problems noted. Brother No problems noted. Brother No problems noted. Daughter No problems noted. Social History Social History Alcohol intake: never Advance Directives: No Advance Directives Information Provided: Yes service: No Current occupational status: retired Physical Exam Vital Signs: Vital Signs: Last Vital Signs Temp 97.7 F 11/20/20 18:26 Pulse 125 H 11/20/20 18:26 Resp 36 H 11/20/20 18:26 BP 121/72 11/20/20 18:26 Pulse Ox 95 11/20/20 18:26 Body Mass Index 43.9 Const: Other: Patient morbidly obese HENMT: Head: Yes normocephalic General nose exam: Normal external nose present Face and sinus: Yes dry mucous membranes Mouth: mucous membranes dry (Dry appearing) Eyes: General: appearance normal, both eyes and all related structures Eyelids: Yes eyelids normal Conjunctivae: conjunctivae normal Pupils: Equal, round and reactive pupils present Neck: Neck: Yes normal visual inspection and Yes supple Chest: Chest palpation & inspection: normal inspection of the chest Resp: Effort & Inspection: normal respiratory effort and other (Mild tachypnea) Auscultation: clear to auscultation bilaterally Cardio: Rate: regular rate Rhythm: regular rhythm Heart sounds: S1 normal heart sound present, S2 normal heart sound present, no gallops, no murmurs and no rubs GI: Palpation (GI): Soft to palpation, nontender and Other GI palpation findings present (Non-distended) Auscultation: normal bowel sounds Skin: Other: Chronic leg dermatitis General skin exam: no rashes or lesions noted Neuro: General: other (Lethargic, minimally verbal) Cranial nerves: Yes Equal, round and reactive pupils present Cognition (Neuro): normal cognition Motor exam (neuro): 5/5 motor strength present throughout Sensory Exam: No Sensory deficit (Neuro) Extrem: General: Yes normal to inspection and Yes no pedal edema Psych: Appearance: grossly normal Affect: normal affect Medical Decision Making MDM Narrative Medical decision making narrative: Patient with recent UTI, sent in for persistent or worsened lethargy. Patient minimally verbal on arrival, had dry appearing mouth, was tachycardic. BUN to creatinine ratio is elevated. Urinalysis does show evidence of infection. Chest x-ray was negative. Lactate normal. White blood cell count normal. Patient afebrile. No evidence of sepsis. Patient is being admitted to the medical service for IV hydration, IV antibiotics pending culture results. Lab Data Lab results reviewed: Yes I reviewed the patient's lab results. Result diagrams: 11/20/20 15:27 11/20/20 15:27 Labs: Lab Results 11/20/20 11/20/20 11/20/20 Range/Units 15:27 15:27 15:27 WBC 8.9 (4.8-10.8) X10*3/uL RBC 4.40 (4.20-5.50) X10*6/uL Hgb 12.6 (12.0-16.0) g/dl Hct 39.1 (37-47) % MCV 88.9 (80-98) fL MCH 28.6 (27.0-33.0) pg MCHC 32.2 (31.0-35.0) g/dl RDW 16.3 H (11.0-16.0) % Plt Count 231 (160-400) X10*3/uL MPV 8.8 L (9.4-12.3) fL Absolute Nucleated RBC 0.000 (0.0-0.012) X10*3/uL Nucleated RBC % (auto) 0.0 (0.0-0.2) /100WBC Neutrophils % (Manual) 71 (45-73) % Band Neutrophils % 3 (3-5) % Lymphocytes % (Manual) 11 L (20-40) % Monocytes % (Manual) 12 H (2-11) % Eosinophils % (Manual) 1 (0-4) % Basophils % (Manual) 1 (0-1) % Metamyelocytes % 1 % Abs Neuts (Manual) 6.6 (2.2-7.9) X10*3/uL Lymphocytes # (Manual) 1.0 (0.6-4.8) X10*3/uL Monocytes # (Manual) 1.1 (0.0-1.2) X10*3/uL Eosinophils # (Manual) 0.1 (0.0-0.8) X10*3/UL Basophils # (Manual) 0.1 (0.0-0.3) X10*3/uL Metamyelocytes # 0.1 X10*3/uL Platelet Estimate NORMAL (NORMAL) Plt Morphology Comment NORMAL RBC Morphology NOTED Acanthocytes (Spur) 1+ (0-2) /OIF Sodium 138 (135-145) mmol/L Potassium 4.3 (3.3-5.1) mmol/L Chloride 105 (96-108) mmol/L Carbon Dioxide 23 (22-29) mmol/L Anion Gap 14 (12-20) BUN 34 H (9-16) mg/dL Creatinine 1.37 (0.5-1.4) mg/dL Estim Creat Clear Calc 50.1 Estimated GFR 37 Random Glucose 148 H D (60-115) mg/dL Lactic Acid 1.0 (0.5-2.0) mmol/L Calcium 10.4 H D (8.4-10.2) mg/dL Magnesium 1.8 (1.6-2.6) mg/dL Total Bilirubin 0.5 (0.0-1.0) mg/dL AST 45 H D (5-31) U/L ALT 33 H (0-31) U/L Alkaline Phosphatase 96 (39-117) U/L Total Protein 6.6 (6.5-8.0) g/dL Albumin 3.1 L (3.5-5.0) g/dL Phenytoin < 0.5 L* (10.0-20.0) ug/mL COVID-19 ([facility]) (Negative) COVID-19 Clin Com 11/20/20 Range/Units 17:39 WBC (4.8-10.8) X10*3/uL RBC (4.20-5.50) X10*6/uL Hgb (12.0-16.0) g/dl Hct (37-47) % MCV (80-98) fL MCH (27.0-33.0) pg MCHC (31.0-35.0) g/dl RDW (11.0-16.0) % Plt Count (160-400) X10*3/uL MPV (9.4-12.3) fL Absolute Nucleated RBC (0.0-0.012) X10*3/uL Nucleated RBC % (auto) (0.0-0.2) /100WBC Neutrophils % (Manual) (45-73) % Band Neutrophils % (3-5) % Lymphocytes % (Manual) (20-40) % Monocytes % (Manual) (2-11) % Eosinophils % (Manual) (0-4) % Basophils % (Manual) (0-1) % Metamyelocytes % % Abs Neuts (Manual) (2.2-7.9) X10*3/uL Lymphocytes # (Manual) (0.6-4.8) X10*3/uL Monocytes # (Manual) (0.0-1.2) X10*3/uL Eosinophils # (Manual) (0.0-0.8) X10*3/UL Basophils # (Manual) (0.0-0.3) X10*3/uL Metamyelocytes # X10*3/uL Platelet Estimate (NORMAL) Plt Morphology Comment RBC Morphology Acanthocytes (Spur) /OIF Sodium (135-145) mmol/L Potassium (3.3-5.1) mmol/L Chloride (96-108) mmol/L Carbon Dioxide (22-29) mmol/L Anion Gap (12-20) BUN (9-16) mg/dL Creatinine (0.5-1.4) mg/dL Estim Creat Clear Calc Estimated GFR Random Glucose (60-115) mg/dL Lactic Acid (0.5-2.0) mmol/L Calcium (8.4-10.2) mg/dL Magnesium (1.6-2.6) mg/dL Total Bilirubin (0.0-1.0) mg/dL AST (5-31) U/L ALT (0-31) U/L Alkaline Phosphatase (39-117) U/L Total Protein (6.5-8.0) g/dL Albumin (3.5-5.0) g/dL Phenytoin (10.0-20.0) ug/mL COVID-19 ([facility]) Negative (Negative) COVID-19 Clin Com See Note Imaging Data Chest x-ray: Radiologist's impression: No acute pathology ECG Data Attestation: I personally reviewed and interpreted this ECG as follows: Interpretation: Sinus tachycardia with a rate of 125. Poor R-wave progression. Left axis deviation/left anterior fascicular block. Discharge Plan Discharge Clinical Impression: Dehydration Patient Disposition: Admitted As Inpatient
[2020-11-20 15:31] LABS: Baso%MD 0.2 %; Eos%MD 2.1 %; Hematocrit 39.1 % (37-47); Hemoglobin 12.6 g/dl (12.0-16.0); IG%MD 0.9 %; Mean Corpuscular HGB Conc 32.2 g/dl (31.0-35.0); Mean Corpuscular Hemoglobin 28.6 pg (27.0-33.0); Mean Corpuscular Volume 88.9 fL (80-98); Mean Platelet Volume 8.8 fL (9.4-12.3); Mono%MD 9.2 %; Neut%MD 73.6 %; Platelet Count 231 X10*3/uL (160-400); Red Cell Distribution Width 16.3 % (11.0-16.0); White Blood Count 8.9 X10*3/uL (4.8-10.8)
[2020-11-20] MEDS: 0.9 % Sodium Chloride 1,000 ML 999 ML IV (15:36)
[2020-11-20 16:04] LABS: Alanine Aminotransferase 33 U/L (0-31); Albumin Level 3.1 g/dL (3.5-5.0); Alkaline Phosphatase 96 U/L (39-117); Anion Gap 14 (12-20); Aspartate Amino Transferase 45 U/L (5-31); Bilirubin Total 0.5 mg/dL (0.0-1.0); Blood Urea Nitrogen 34 mg/dL (9-16); Calcium 10.4 mg/dL (8.4-10.2); Carbon Dioxide 23 mmol/L (22-29); Chloride 105 mmol/L (96-108); Creatinine Clr Calc Pharmacy 50.1; Estimated Glomerular Filt Rate 37; Glucose Random 148 mg/dL (60-115); Magnesium 1.8 mg/dL (1.6-2.6); Potassium 4.3 mmol/L (3.3-5.1); Sodium 138 mmol/L (135-145); Total Protein 6.6 g/dL (6.5-8.0)
--- NOTE | 2020-11-20 16:28 | ECG_ITS ---
Test Reason : LETHARGY Blood Pressure : / mmHG Vent. Rate : 125 BPM Atrial Rate : 125 BPM P-R Int : 130 ms QRS Dur : 080 ms QT Int : 300 ms P-R-T Axes : 000 -48 022 degrees QTc Int : 433 ms Sinus tachycardia Left anterior fascicular block Possible Anterolateral infarct (cited on or before 20-APR-2016) Abnormal ECG When compared with ECG of 27-SEP-2020 21:23, Vent. rate has increased BY 52 BPM Questionable change in initial forces of Lateral leads Referred By: Modesto Talavera Electronically Signed By:Marlo Branch
[2020-11-20 16:50] LABS: Phenytoin Dilantin < 0.5 ug/mL (10.0-20.0)
[2020-11-20] MEDS: Piperacillin Sodium/Tazobactam 3.375 GM in 0.9 % Sodium Chloride 50 ML IV (16:52)
[2020-11-20 16:54] LABS: Band Neutrophils Percent 3 % (3-5); Basophils Abs Manual 0.1 X10*3/uL (0.0-0.3); Basophils Percent Manual 1 % (0-1); Eosinophils Absolute Manual 0.1 X10*3/UL (0.0-0.8); Eosinophils Percent Manual 1 % (0-4); Lymphocytes Percent Manual 11 % (20-40); Metamyelocytes Absolute 0.1 X10*3/uL; Metamyelocytes Percent 1 %; Monocytes Absolute Manual 1.1 X10*3/uL (0.0-1.2); Monocytes Percent Manual 12 % (2-11); Neutrophils Absolute Manual 6.6 X10*3/uL (2.2-7.9); Neutrophils Percent Manual 71 % (45-73); Platelet Estimate NORMAL (NORMAL); Platelet Morphology Comment NORMAL; RBC Morphology NOTED
[2020-11-20 16:55] LABS: Acanthocytes 1+ (0-2) /OIF
--- NOTE | 2020-11-20 17:44 | P.HPHOSP_ITS ---
History of Present Illness Date of Service: 11/20/20 Chief Complaint: lethargy 80F sent in by [facility] for lethargy. patient just completed 7 day course of antibiotics for pseudomonal UTI. But has not had improvement in mental status or oral intake. Patient herself is very confused due to baseline dementi a and is unable to give a good history. In ED noted to have signs of dehydration with hypercalcemia. She was given IV fluids and Zosyn. UA and cultures are pending. patient states that she has generalized body aches, but otherwise has no specific complaints. Review of Systems Review of Systems: Constitutional: Denies fever, denies Chills Eyes: denies blurry vision ENT: denies sore throat CVS: denies chest pain Respiratory: Denies dyspnea GI: no abdominal pain : denies dysuria MSK: denies neck pain Skin: denies rash Neuro: denies specific motor weakness Psych: denies suicidal ideation Endocrine: denies heat/cold intoleratnce Hematologic: denies easy bleeding Allergy: denies hives COUNT INCLUDES THE [facility] Medical History (Updated 11/20/20 @ 17:48 by Jona Mon MD) Controlled diabetes mellitus type II without complication Essential hypertension History of kidney stones History of non-ST elevation myocardial infarction (NSTEMI) Invasive carcinoma of urinary bladder Postmenopausal Family History Father Aneurysm Mother Non Hodgkin's lymphoma Son Hepatitis C Son No problems noted. Brother No problems noted. Brother No problems noted. Daughter No problems noted. Family history: reviewed and not pertinent Surgical History S/P urological surgery Social History Alcohol intake: never Advance Directives: No Advance Directives Information Provided: Yes service: No Current occupational status: retired Meds Allergies Allergy/AdvReac Type Severity Reaction Status Date / Time levofloxacin [From LEVAQUIN] AdvReac Intermediate MUSCLE/JOINT Verified 09/29/20 12:44 PAIN hydromorphone [Dilaudid] AdvReac Unknown vomiting Verified 09/29/20 12:44 Home Medications Medication Instructions Recorded Confirmed Last Taken Type metoprolol tartrate 50 mg tablet 37.5 mg PO BID 02/26/20 11/20/20 09/26/20 History Physical Exam Vital Signs and Narrative: Vital Signs: Last Vital Signs Temp 98.4 F 11/20/20 15:04 Pulse 128 H 11/20/20 15:04 Resp 40 H 11/20/20 15:04 BP 134/77 11/20/20 15:04 Pulse Ox 93 11/20/20 15:04 Body Mass Index 43.9 General: no acute distress, lethargic HEENT: atraumatic Neck: normal to visual inspection CVS: S1, S2, RRR Resp: diminished Chest: non tender GI: soft, non tender, non distended : no CVA tenderness Skin: dry Extremities: no edema Neuro: Oriented X1, grossly intact Psych: impaired insight Results Labs CBC and Chem 7: 11/20/20 15:27 11/20/20 15:27 Labs: Laboratory Results - last 24 hr 11/20/20 11/20/20 11/20/20 15:27 15:27 15:27 MCV 88.9 MCH 28.6 MCHC 32.2 RDW 16.3 H Plt Count 231 MPV 8.8 L Absolute Nucleated RBC 0.000 Nucleated RBC % (auto) 0.0 Neutrophils % (Manual) 71 Band Neutrophils % 3 Lymphocytes % (Manual) 11 L Monocytes % (Manual) 12 H Eosinophils % (Manual) 1 Basophils % (Manual) 1 Metamyelocytes % 1 Abs Neuts (Manual) 6.6 Lymphocytes # (Manual) 1.0 Monocytes # (Manual) 1.1 Eosinophils # (Manual) 0.1 Basophils # (Manual) 0.1 Metamyelocytes # 0.1 Platelet Estimate NORMAL Plt Morphology Comment NORMAL RBC Morphology NOTED Acanthocytes (Spur) 1+ (0-2) Anion Gap 14 Estim Creat Clear Calc 50.1 Estimated GFR 37 Random Glucose 148 H D Lactic Acid 1.0 Calcium 10.4 H D Magnesium 1.8 Total Bilirubin 0.5 AST 45 H D ALT 33 H Alkaline Phosphatase 96 Total Protein 6.6 Albumin 3.1 L Phenytoin < 0.5 L* Imaging Radiologist's Impressions: Impressions Chest X-Ray 11/20/20 15:02 IMPRESSION: Hypoexpanded lungs without acute process. Assessment and Plan (1) Invasive carcinoma of urinary bladder: Status: Acute 80F sent in from SNF for lethargy metabolic encephalopathy due to dehydration/hypercalcemia possibly due to poor intake from dementia and recent UTI, vs hypercalcemia from malignancy (bladder ca) IVF will hold off on antibiotics until UA and ucx back elevated LFTs check CT abd, ?liver mets HTN lopressor history of DM no longer on meds, a1c 5.5 CKD III stable Quality Stroke Does the patient have a stroke diagnosis?: No VTE Prior VTE?: No VTE Risk Level:: Medical - moderate - high VTE Device Contraindication: Treatment Not Indicated VTE Drug Contraindication: N/A - Med Ordered
[2020-11-20 18:18] LABS: COVID-19 Test Negative (Negative)
[2020-11-20 18:20] LABS: Troponin-I High Sensitivity 5.4 ng/L (<3.5-17.0)
[2020-11-20 18:26] VITALS: BP 121/72; PULSE 125; RESP 36; TEMP 36.5; O2SAT 95
[2020-11-20] MEDS: 0.9 % Sodium Chloride 1,000 ML 100 ML IVCONT (18:39)
[2020-11-21] VITALS (8 sets, daily range): BP systolic 132–170; BP diastolic 53–89; PULSE 72–140; RESP 19–33; TEMP 36.1–37.3; O2SAT 95–97
--- NOTE | 2020-11-21 | ECG_ITS ---
Test Reason : TACHY Blood Pressure : / mmHG Vent. Rate : 116 BPM Atrial Rate : 116 BPM P-R Int : 138 ms QRS Dur : 080 ms QT Int : 306 ms P-R-T Axes : 000 -48 027 degrees QTc Int : 425 ms Sinus tachycardia Left anterior fascicular block Possible Anterolateral infarct , age undetermined Abnormal ECG When compared to the previous EKG of No significant changes seen Referred By: Marlo Branch Electronically Signed By:Marlo Branch
[2020-11-21] MEDS: 0.9 % Sodium Chloride Flush 3 ML SYRINGE IVFLUSH ×2 (00:50→09:53)
[2020-11-21] MEDS: 0.9 % Sodium Chloride 1,000 ML 100 ML IVCONT ×2 (06:10→16:07)
--- NOTE | 2020-11-21 06:37 | PC.NURSE ---
Patient bed linen and hospital gown changed. Patient has a large open sore on coccyx about the size of a quarter. She also has wounds under between her belly folds. Patient cleaned and abd pads applied to belly folds to prevent skin breakdown. Periwick placed.
[2020-11-21 07:35] LABS: Hematocrit 40.1 % (37-47); Hemoglobin 12.5 g/dl (12.0-16.0); Mean Corpuscular HGB Conc 31.2 g/dl (31.0-35.0); Mean Corpuscular Hemoglobin 28.3 pg (27.0-33.0); Mean Corpuscular Volume 90.7 fL (80-98); Platelet Count 216 X10*3/uL (160-400); Red Blood Count 4.42 X10*6/uL (4.20-5.50); Red Cell Distribution Width 16.7 % (11.0-16.0); White Blood Count 8.3 X10*3/uL (4.8-10.8)
[2020-11-21 08:13] LABS: Alanine Aminotransferase 33 U/L (0-31); Albumin Level 3.2 g/dL (3.5-5.0); Alkaline Phosphatase 85 U/L (39-117); Aspartate Amino Transferase 45 U/L (5-31); Bilirubin Direct 0.3 mg/dL (0.0-0.5); Bilirubin Total 0.7 mg/dL (0.0-1.0); Total Protein 6.6 g/dL (6.5-8.0)
[2020-11-21 08:14] LABS: Anion Gap 14 (12-20); Blood Urea Nitrogen 32 mg/dL (9-16); Calcium 9.9 mg/dL (8.4-10.2); Carbon Dioxide 22 mmol/L (22-29); Chloride 108 mmol/L (96-108); Creatinine Clr Calc Pharmacy 55.3; Estimated Glomerular Filt Rate 42; Glucose Random 98 mg/dL (60-115); Magnesium 1.8 mg/dL (1.6-2.6); Potassium 4.3 mmol/L (3.3-5.1); Sodium 140 mmol/L (135-145)
[2020-11-21 08:26] LABS: Glucose Urine UA NEG (NEG); Leukocyte Esterase Urine 3+ (NEG); Nitrite Urine POS (NEG); Specific Gravity - Urine 1.025 (1.005-1.025); UACC Culture Trigger YES; Urine Blood 3+ (NEG); Urine Ketones NEG (NEG); Urine Protein 1+ MG/DL (NEG-TRACE)
[2020-11-21 08:28] LABS: Appearance Urine CLOUDY; Color Urine YELLOW
[2020-11-21 08:41] LABS: Amorphous Sediment Urine 2+ /LPF; Bacteria Urine TRACE /LPF; Renal Epithelial Cells Urine TRACE /LPF; Squamous Epithelial Cell Urine 1+ /LPF; WBC Urine 50-75 /HPF (0-4)
[2020-11-21] MEDS: Rivaroxaban 10 MG TABLET PO (09:09)
[2020-11-21] MEDS: Metoprolol Tartrate 12.5 MG HALFTAB 37.5 MG PO ×2 (09:09→21:49)
--- NOTE | 2020-11-21 09:32 | PM.CNCAR ---
History of Present Illness History of Present Illness Date of Service: 11/21/20 Requesting physician: Jona Mon Chief complaint: Lethargy UTI Hypercalcemia, tachycardia Narrative: 80-year-old female with invasive carcinoma urinary bladder, hypertension, chronic kidney disease and dementia is presenting for confusion and concern for urine tract infection. We have been consulted for tachycardia. Her telemetry is showing regular tachycardia at 140 beats per minute. EKGs showing sinus tachycardia right now. She is denying any symptoms. She looks dehydrated. History is quite limited due to mental status. EKG, labs and imaging reviewed. [facility] Past Medical History Medical History (Updated 11/21/20 @ 11:46 by Marlo Branch MD) Controlled diabetes mellitus type II without complication Essential hypertension History of kidney stones History of non-ST elevation myocardial infarction (NSTEMI) Invasive carcinoma of urinary bladder Postmenopausal Family History Family History Father Aneurysm Mother Non Hodgkin's lymphoma Son Hepatitis C Son No problems noted. Brother No problems noted. Brother No problems noted. Daughter No problems noted. Family history: reviewed and not pertinent Surgical History Surgical History S/P urological surgery Social History Social History Alcohol intake: never Advance Directives: No Advance Directives Information Provided: Yes service: No Current occupational status: retired Meds Allergies Allergy/AdvReac Type Severity Reaction Status Date / Time levofloxacin [From LEVAQUIN] AdvReac Intermediate MUSCLE/JOINT Verified 09/29/20 12:44 PAIN hydromorphone [Dilaudid] AdvReac Unknown vomiting Verified 09/29/20 12:44 Active Medications: Current Medications Generic Name Dose Route Start Last Admin Trade Name Freq PRN Reason Stop Dose Admin Sodium Chloride 1,000 mls @ 100 mls/hr 11/20/20 17:45 11/21/20 06:10 Ns IVCONT 100 mls/hr .Q10H LAYA Administration Metoprolol Tartrate 37.5 mg 11/20/20 21:00 11/21/20 09:09 Metoprolol Tartrate 12.5 Mg Halftab PO 37.5 mg BID LAYA Administration Protocol Rivaroxaban 10 mg 11/21/20 09:00 11/21/20 09:09 Rivaroxaban 10 Mg Tablet PO 10 mg DAILY LAYA Administration Sodium Chloride 3 ml 11/21/20 00:00 11/21/20 09:28 0.9 % Sodium Chloride Flush 3 Ml Syringe IVFLUSH 3 ml QSHIFT LAYA Administration Home Medications Medication Instructions Recorded Confirmed Last Taken Type metoprolol tartrate 50 mg tablet 37.5 mg PO BID 02/26/20 11/20/20 09/26/20 History Physical Exam Vital Signs: Vital Signs: Last Vital Signs Temp 99.2 F 11/21/20 06:00 Pulse 140 H 11/21/20 09:09 Resp 30 H 11/21/20 06:00 BP 133/81 11/21/20 09:09 Pulse Ox 95 11/21/20 06:00 Body Mass Index 43.9 GENERAL APPEARANCE: in no acute distress. NECK: no carotid bruit, no jugular venous distention. SKIN: no suspicious lesions, warm and dry. HEART: no murmurs. Tachycardic. LUNGS: clear to auscultation bilaterally. ABDOMEN: soft, nontender. EXTREMITIES: no edema. PERIPHERAL PULSES: equal. NEUROLOGIC: No gross deficits, AAO X 3 Results Labs and Meds Result diagrams: 11/21/20 07:07 11/21/20 07:07 Lab results: Laboratory Results - last 24 hr 11/20/20 11/20/20 11/20/20 15:27 15:27 15:27 WBC 8.9 RBC 4.40 Hgb 12.6 Hct 39.1 MCV 88.9 MCH 28.6 MCHC 32.2 RDW 16.3 H Plt Count 231 MPV 8.8 L Absolute Nucleated RBC 0.000 Nucleated RBC % (auto) 0.0 Neutrophils % (Manual) 71 Band Neutrophils % 3 Lymphocytes % (Manual) 11 L Monocytes % (Manual) 12 H Eosinophils % (Manual) 1 Basophils % (Manual) 1 Metamyelocytes % 1 Abs Neuts (Manual) 6.6 Lymphocytes # (Manual) 1.0 Monocytes # (Manual) 1.1 Eosinophils # (Manual) 0.1 Basophils # (Manual) 0.1 Metamyelocytes # 0.1 Platelet Estimate NORMAL Plt Morphology Comment NORMAL RBC Morphology NOTED Acanthocytes (Spur) 1+ (0-2) Sodium 138 Potassium 4.3 Chloride 105 Carbon Dioxide 23 Anion Gap 14 BUN 34 H Creatinine 1.37 Estim Creat Clear Calc 50.1 Estimated GFR 37 Random Glucose 148 H D Lactic Acid 1.0 Calcium 10.4 H D Magnesium 1.8 Total Bilirubin 0.5 Direct Bilirubin AST 45 H D ALT 33 H Alkaline Phosphatase 96 Troponin I High Sens Total Protein 6.6 Albumin 3.1 L Urine Color Urine Appearance Urine pH Ur Specific [place] Urine Protein Urine Glucose (UA) Urine Ketones Urine Blood Urine Nitrite Ur Leukocyte Esterase Urine RBC Urine WBC Ur Squamous Epith Cells Ur Renal Epithelial Cell Amorphous Sediment Urine Bacteria Phenytoin < 0.5 L* COVID-19 ([facility]) COVID-19 Free & Clear Com 11/20/20 11/20/20 11/21/20 17:39 17:46 07:07 WBC 8.3 RBC 4.42 Hgb 12.5 Hct 40.1 MCV 90.7 MCH 28.3 MCHC 31.2 RDW 16.7 H Plt Count 216 MPV 9.0 L Absolute Nucleated RBC 0.000 Nucleated RBC % (auto) 0.0 Neutrophils % (Manual) Band Neutrophils % Lymphocytes % (Manual) Monocytes % (Manual) Eosinophils % (Manual) Basophils % (Manual) Metamyelocytes % Abs Neuts (Manual) Lymphocytes # (Manual) Monocytes # (Manual) Eosinophils # (Manual) Basophils # (Manual) Metamyelocytes # Platelet Estimate Plt Morphology Comment RBC Morphology Acanthocytes (Spur) Sodium Potassium Chloride Carbon Dioxide Anion Gap BUN Creatinine Estim Creat Clear Calc Estimated GFR Random Glucose Lactic Acid Calcium Magnesium Total Bilirubin Direct Bilirubin AST ALT Alkaline Phosphatase Troponin I High Sens 5.4 Total Protein Albumin Urine Color Urine Appearance Urine pH Ur Specific [place] Urine Protein Urine Glucose (UA) Urine Ketones Urine Blood Urine Nitrite Ur Leukocyte Esterase Urine RBC Urine WBC Ur Squamous Epith Cells Ur Renal Epithelial Cell Amorphous Sediment Urine Bacteria Phenytoin COVID-19 ([facility]) Negative COVID-19 Clin [employer] See Note 11/21/20 11/21/20 11/21/20 07:07 07:07 08:00 WBC RBC Hgb Hct MCV MCH MCHC RDW Plt Count MPV Absolute Nucleated RBC Nucleated RBC % (auto) Neutrophils % (Manual) Band Neutrophils % Lymphocytes % (Manual) Monocytes % (Manual) Eosinophils % (Manual) Basophils % (Manual) Metamyelocytes % Abs Neuts (Manual) Lymphocytes # (Manual) Monocytes # (Manual) Eosinophils # (Manual) Basophils # (Manual) Metamyelocytes # Platelet Estimate Plt Morphology Comment RBC Morphology Acanthocytes (Spur) Sodium 140 Potassium 4.3 Chloride 108 Carbon Dioxide 22 Anion Gap 14 BUN 32 H Creatinine 1.24 Estim Creat Clear Calc 55.3 Estimated GFR 42 Random Glucose 98 Lactic Acid Calcium 9.9 Magnesium 1.8 Total Bilirubin 0.7 Direct Bilirubin 0.3 AST 45 H ALT 33 H Alkaline Phosphatase 85 Troponin I High Sens Total Protein 6.6 Albumin 3.2 L Urine Color YELLOW Urine Appearance CLOUDY Urine pH 6.0 Ur Specific [place] 1.025 Urine Protein 1+ H Urine Glucose (UA) NEG Urine Ketones NEG Urine Blood 3+ H Urine Nitrite POS H Ur Leukocyte Esterase 3+ H Urine RBC 10-14 H Urine WBC 50-75 H Ur Squamous Epith Cells 1+ Ur Renal Epithelial Cell TRACE Amorphous Sediment 2+ Urine Bacteria TRACE Phenytoin COVID-19 ([facility]) COVID-19 Clin Com Imaging Radiologist's impression: Impressions Chest X-Ray 11/20/20 15:02 IMPRESSION: Hypoexpanded lungs without acute process. Abdomen/Pelvis CT 11/20/20 18:47 IMPRESSION: 1. Bilateral hydronephrosis of kidneys. This appears to be chronic with cortical thinning of each kidney which has progressed since 2017.. The right is worse than the left. No ureteral stone. There is a small nonobstructive stone in the right kidney. 2. Diverticulosis of colon but no acute abnormality of the bowel. No diverticulitis. 3. Cholelithiasis. 4. Right adnexal cyst. This is not substantially changed since prior CAT scan of October 07, 2016. This is almost only benign. Annual follow-up pelvic ultrasound recommended. 5. Ventral wall hernia stable since prior CAT scan 2016. Assessment and Plan (1) Dehydration: Status: Acute (2) CKD (chronic kidney disease), stage III: Status: Acute (3) Essential hypertension: Status: Acute (4) Sinus tachycardia: Status: Acute Pleasant 80-year-old female presenting for confusion and concern for UTI and hypercalcemia. She is tachycardic an EKG showing sinus tachycardia. She has background of invasive carcinoma of the urinary bladder. Despite hydration she continues to be tachycardic. I think we should scan her for PE. Agree with gentle hydration. We will follow along with you. Thank you for allowing me to participate in the care of your patient. Please feel free to contact me if you have any questions. Procedures Date of Service Date of Service: 11/21/20
--- NOTE | 2020-11-21 09:32 | PC.NURSE ---
Pt alert and oriented x2, HR low 140s at rest, aflutter on monitor. pt denies pain. Pt has open area on right coccyx and under L and R abdominal folds. the entire abdominal fold areas are red and irritated. bilateral groin red and irritated. Photos taken of affected areas and uploaded to pt's chart. Pt cleaned and repositioned, abd pads applied under abdominal fold for protection. Fluid running without difficulty, meds given at bedside. Hospitalist and Dr. Branch for cardiology at bedside.
--- NOTE | 2020-11-21 11:11 | HO.PM.IMPN ---
Subjective Subjective Date of Service: 11/21/20 Interval History: weak Cardiovascular Cardiovascular: Reports no additional cardiovascular complaints Respiratory Respiratory: Reports no additional respiratory complaints Physical Exam Vital Signs: Vital Signs: Last Vital Signs Temp 99.2 F 11/21/20 06:00 Pulse 136 H 11/21/20 09:49 Resp 33 H 11/21/20 09:49 BP 133/81 11/21/20 09:49 Pulse Ox 96 11/21/20 09:49 Body Mass Index 43.9 General: lethargic, ill appearing, more oriented today X3 Resp: diminished CVS: S1,S2,Rapid irregular GI: soft, non tender, non distended Neuro: motor grossly weak Psych: appropriate affect skin: Objective Data Current Medications Generic Name Dose Route Start Last Admin Trade Name [place] PRN Reason Stop Dose Admin Sodium Chloride 1,000 mls @ 100 mls/hr 11/20/20 17:45 11/21/20 06:10 Ns IVCONT 100 mls/hr .Q10H LAYA Administration Cefepime HCl 1 gm/ Sodium 50 mls @ 100 mls/hr 11/21/20 12:00 Chloride IV Q8H LAYA Metoprolol Tartrate 37.5 mg 11/20/20 21:00 11/21/20 09:09 Metoprolol Tartrate 12.5 Mg Halftab PO 37.5 mg BID LAYA Administration Protocol Rivaroxaban 10 mg 11/21/20 09:00 11/21/20 09:09 Rivaroxaban 10 Mg Tablet PO 10 mg DAILY LAYA Administration Sodium Chloride 3 ml 11/21/20 00:00 11/21/20 09:53 0.9 % Sodium Chloride Flush 3 Ml Syringe IVFLUSH 3 ml QSHIFT LAYA Administration Labs CBC & Chem 7: 11/21/20 07:07 11/21/20 07:07 Labs: Laboratory Results - last 24 hr 11/20/20 11/20/20 11/20/20 15:27 15:27 15:27 WBC 8.9 RBC 4.40 Hgb 12.6 Hct 39.1 MCV 88.9 MCH 28.6 MCHC 32.2 RDW 16.3 H Plt Count 231 MPV 8.8 L Absolute Nucleated RBC 0.000 Nucleated RBC % (auto) 0.0 Neutrophils % (Manual) 71 Band Neutrophils % 3 Lymphocytes % (Manual) 11 L Monocytes % (Manual) 12 H Eosinophils % (Manual) 1 Basophils % (Manual) 1 Metamyelocytes % 1 Abs Neuts (Manual) 6.6 Lymphocytes # (Manual) 1.0 Monocytes # (Manual) 1.1 Eosinophils # (Manual) 0.1 Basophils # (Manual) 0.1 Metamyelocytes # 0.1 Platelet Estimate NORMAL Plt Morphology Comment NORMAL RBC Morphology NOTED Acanthocytes (Spur) 1+ (0-2) Sodium 138 Potassium 4.3 Chloride 105 Carbon Dioxide 23 Anion Gap 14 BUN 34 H Creatinine 1.37 Estim Creat Clear Calc 50.1 Estimated GFR 37 Random Glucose 148 H D Lactic Acid 1.0 Calcium 10.4 H D Magnesium 1.8 Total Bilirubin 0.5 Direct Bilirubin AST 45 H D ALT 33 H Alkaline Phosphatase 96 Troponin I High Sens Total Protein 6.6 Albumin 3.1 L Urine Color Urine Appearance Urine pH Ur Specific [place] Urine Protein Urine Glucose (UA) Urine Ketones Urine Blood Urine Nitrite Ur Leukocyte Esterase Urine RBC Urine WBC Ur Squamous Epith Cells Ur Renal Epithelial Cell Amorphous Sediment Urine Bacteria Phenytoin < 0.5 L* COVID-19 ([facility]) COVID-19 Tappr 11/20/20 11/20/20 11/21/20 17:39 17:46 07:07 WBC 8.3 RBC 4.42 Hgb 12.5 Hct 40.1 MCV 90.7 MCH 28.3 MCHC 31.2 RDW 16.7 H Plt Count 216 MPV 9.0 L Absolute Nucleated RBC 0.000 Nucleated RBC % (auto) 0.0 Neutrophils % (Manual) Band Neutrophils % Lymphocytes % (Manual) Monocytes % (Manual) Eosinophils % (Manual) Basophils % (Manual) Metamyelocytes % Abs Neuts (Manual) Lymphocytes # (Manual) Monocytes # (Manual) Eosinophils # (Manual) Basophils # (Manual) Metamyelocytes # Platelet Estimate Plt Morphology Comment RBC Morphology Acanthocytes (Spur) Sodium Potassium Chloride Carbon Dioxide Anion Gap BUN Creatinine Estim Creat Clear Calc Estimated GFR Random Glucose Lactic Acid Calcium Magnesium Total Bilirubin Direct Bilirubin AST ALT Alkaline Phosphatase Troponin I High Sens 5.4 Total Protein Albumin Urine Color Urine Appearance Urine pH Ur Specific [place] Urine Protein Urine Glucose (UA) Urine Ketones Urine Blood Urine Nitrite Ur Leukocyte Esterase Urine RBC Urine WBC Ur Squamous Epith Cells Ur Renal Epithelial Cell Amorphous Sediment Urine Bacteria Phenytoin COVID-19 ([facility]) Negative COVID-19 Tappr See Note 11/21/20 11/21/2011/21/21 07:07 07:07 08:00 WBC RBC Hgb Hct MCV MCH MCHC RDW Plt Count MPV Absolute Nucleated RBC Nucleated RBC % (auto) Neutrophils % (Manual) Band Neutrophils % Lymphocytes % (Manual) Monocytes % (Manual) Eosinophils % (Manual) Basophils % (Manual) Metamyelocytes % Abs Neuts (Manual) Lymphocytes # (Manual) Monocytes # (Manual) Eosinophils # (Manual) Basophils # (Manual) Metamyelocytes # Platelet Estimate Plt Morphology Comment RBC Morphology Acanthocytes (Spur) Sodium 140 Potassium 4.3 Chloride 108 Carbon Dioxide 22 Anion Gap 14 BUN 32 H Creatinine 1.24 Estim Creat Clear Calc 55.3 Estimated GFR 42 Random Glucose 98 Lactic Acid Calcium 9.9 Magnesium 1.8 Total Bilirubin 0.7 Direct Bilirubin 0.3 AST 45 H ALT 33 H Alkaline Phosphatase 85 Troponin I High Sens Total Protein 6.6 Albumin 3.2 L Urine Color YELLOW Urine Appearance CLOUDY Urine pH 6.0 Ur Specific [place] 1.025 Urine Protein 1+ H Urine Glucose (UA) NEG Urine Ketones NEG Urine Blood 3+ H Urine Nitrite POS H Ur Leukocyte Esterase 3+ H Urine RBC 10-14 H Urine WBC 50-75 H Ur Squamous Epith Cells 1+ Ur Renal Epithelial Cell TRACE Amorphous Sediment 2+ Urine Bacteria TRACE Phenytoin COVID-19 ([facility]) COVID-19 Clin Com Quality Stroke Does the patient have a stroke diagnosis?: No VTE Prior VTE?: No VTE Risk Level:: Medical - moderate - high VTE Device Contraindication: Treatment Not Indicated VTE Drug Contraindication: N/A - Med Ordered Assessment and Plan (1) UTI (urinary tract infection): Status: Inactive Assessment and Plan: 80F sent in from SNF for lethargy metabolic encephalopathy due to dehydration/hypercalcemia possibly due to poor intake from dementia and recent UTI, vs hypercalcemia from malignancy (bladder ca) continue IVF still very lethargic, but more oriented today UA grossly positive, will restart cefepime aflutter with rvr had previous singular episode noted on chart continue lopressor, cardio eval HTN lopressor history of DM no longer on meds, a1c 5.5 CKD III stable
--- NOTE | 2020-11-21 12:21 | MHC.CM.PN ---
Attempted to meet with patient in regards to discharge planning. Patient is currently lethargic. Spoke with patient's son/HCP, Michel via telephone at [phone]. Patient was at [facility] for short term rehab. However, 2 days ago was transferred to the intermodal customer service care unit. Anticipate patient will return to [facility] via BLS when medically stable. Marely MENA explained and left at patient's bedside, per Michel's request. HCP verified to be on file. Continue to monitor for d/c needs.
[2020-11-21 12:28] LABS: TSH reflex Free T4 1.46 uIU/mL (0.32-4.0)
[2020-11-21] MEDS: cefEPime HCl 1 GM in 0.9 % Sodium Chloride 50 ML IV ×2 (13:07→21:49)
--- NOTE | 2020-11-21 13:35 | PC.NURSE ---
Report given to receiving nurse TIMOTHY Tucker.
--- NOTE | 2020-11-21 17:03 | PC.NURSE ---
Pt unable to sign consent for CTA due to lethargy and confusion. Message left for son Michel HCP to return call for consent. Nurse fill manager attempted to start larger bore IV for pt for CTA as requested by CT department but unable to. Marisela Pastrana notified of only 22g access and no consent at thie time. Dr Mon notified and US lower extremities ordered. Pt does not appear to have resp distress. o2 sat 95-96% on room air. Lungs dim T/O.
[2020-11-22] VITALS (8 sets, daily range): BP systolic 133–176; BP diastolic 61–87; PULSE 60–115; RESP 16–21; TEMP 36–36.8; O2SAT 93–97; BMI 43.9
[2020-11-22] MEDS: 0.9 % Sodium Chloride 1,000 ML 100 ML IVCONT ×2 (03:21→13:20)
[2020-11-22] MEDS: cefEPime HCl 1 GM in 0.9 % Sodium Chloride 50 ML IV ×3 (05:20→20:20)
[2020-11-22 06:24] LABS: Hematocrit 37.8 % (37-47); Hemoglobin 11.7 g/dl (12.0-16.0); Mean Corpuscular Hemoglobin 28.4 pg (27.0-33.0); Mean Corpuscular Volume 91.7 fL (80-98); Mean Platelet Volume 8.9 fL (9.4-12.3); Platelet Count 211 X10*3/uL (160-400); Red Blood Count 4.12 X10*6/uL (4.20-5.50); Red Cell Distribution Width 16.8 % (11.0-16.0); White Blood Count 8.3 X10*3/uL (4.8-10.8)
[2020-11-22 06:40] LABS: Anion Gap 15 (12-20); Blood Urea Nitrogen 29 mg/dL (9-16); Calcium 9.7 mg/dL (8.4-10.2); Carbon Dioxide 20 mmol/L (22-29); Chloride 110 mmol/L (96-108); Creatinine Clr Calc Pharmacy 65.3; Estimated Glomerular Filt Rate 51; Glucose Fasting 83 mg/dL (60-99); Potassium 4.4 mmol/L (3.3-5.1); Sodium 141 mmol/L (135-145)
[2020-11-22] MEDS: Metoprolol Tartrate 12.5 MG HALFTAB 37.5 MG PO ×2 (08:52→21:51)
[2020-11-22] MEDS: Rivaroxaban 10 MG TABLET PO (08:52)
--- NOTE | 2020-11-22 10:20 | P.PNIM_ITS ---
Subjective Subjective Date of Service: 11/22/20 Interval History: still very weak Cardiovascular Cardiovascular: Reports no additional cardiovascular complaints Respiratory Respiratory: Reports no additional respiratory complaints Physical Exam Vital Signs: Vital Signs: Last Vital Signs Temp 97.3 F 11/22/20 07:37 Pulse 104 H 11/22/20 07:37 Resp 21 H 11/22/20 07:37 BP 176/87 H 11/22/20 07:37 Pulse Ox 94 11/22/20 07:37 Body Mass Index 43.9 General: lethargic, ill appearing, Resp: diminished CVS: S1,S2,RRR GI: soft, non tender, non distended Neuro: motor grossly weak Psych: appropriate affect skin: see previous note Objective Data Current Medications Generic Name Dose Route Start Last Admin Trade Name Coreyq PRN Reason Stop Dose Admin Sodium Chloride 1,000 mls @ 100 mls/hr 11/20/20 17:45 11/22/20 03:21 Ns IVCONT 100 mls/hr .Q10H LAYA Administration Cefepime HCl 1 gm/ Sodium 50 mls @ 100 mls/hr 11/21/20 12:00 11/22/20 06:22 Chloride IV Infused Q8H LAYA Infusion Metoprolol Tartrate 37.5 mg 11/20/20 21:00 11/22/20 08:52 Metoprolol Tartrate 12.5 Mg Halftab PO 37.5 mg BID LAYA Administration Protocol Rivaroxaban 10 mg 11/21/20 09:00 11/22/20 08:52 Rivaroxaban 10 Mg Tablet PO 10 mg DAILY LAYA Administration Sodium Chloride 3 ml 11/21/20 00:00 11/22/20 08:52 0.9 % Sodium Chloride Flush 3 Ml Syringe IVFLUSH Not Given QSHIFT [facility] Labs CBC & Chem 7: 11/22/20 05:57 11/22/20 05:57 Labs: Laboratory Results - last 24 hr 11/21/20 11/22/20 11/22/20 07:07 05:57 05:57 WBC 8.3 RBC 4.12 L Hgb 11.7 L Hct 37.8 MCV 91.7 MCH 28.4 MCHC 31.0 RDW 16.8 H Plt Count 211 MPV 8.9 L Absolute Nucleated RBC 0.000 Nucleated RBC % (auto) 0.0 Sodium 141 Potassium 4.4 Chloride 110 H Carbon Dioxide 20 L Anion Gap 15 BUN 29 H Creatinine 1.05 Estim Creat Clear Calc 65.3 Estimated GFR 51 Fasting Glucose 83 Calcium 9.7 TSH 1.46 Microbiology Microbiology Results: Microbiology 11/21/20 Unknown Urine Culture - Preliminary Urine clean catch - Clean Catch Midstream Culture in progress. Quality Stroke Does the patient have a stroke diagnosis?: No VTE Prior VTE?: No VTE Risk Level:: Medical - moderate - high VTE Device Contraindication: Treatment Not Indicated VTE Drug Contraindication: N/A - Med Ordered Assessment and Plan (1) UTI (urinary tract infection): Status: Inactive Assessment and Plan: 80F sent in from SNF for lethargy metabolic encephalopathy due to dehydration/hypercalcemia possibly due to poor intake from dementia and recent UTI, vs hypercalcemia from malignancy (bladder ca) continue IVF still very lethargic UA grossly positive, restarted cefepime (reported pseudomonas in [place]) follow up cultures had tachycardia yesterday, thought was aflutter, but looks like it was sinus tachycardi continue lopressor HTN lopressor history of DM no longer on meds, a1c 5.5 CKD III stable
[2020-11-23] MEDS: 0.9 % Sodium Chloride 1,000 ML 100 ML IVCONT ×2 (00:09→11:12)
[2020-11-23 03:38] VITALS: BP 155/74; PULSE 71; RESP 16; TEMP 36.1; O2SAT 96
[2020-11-23] MEDS: cefEPime HCl 1 GM in 0.9 % Sodium Chloride 50 ML IV ×2 (04:57→11:12)
[2020-11-23 06:15] LABS: Hematocrit 41.5 % (37-47); Hemoglobin 12.8 g/dl (12.0-16.0); Mean Corpuscular HGB Conc 30.8 g/dl (31.0-35.0); Mean Corpuscular Hemoglobin 28.4 pg (27.0-33.0); Mean Platelet Volume 9.1 fL (9.4-12.3); Platelet Count 219 X10*3/uL (160-400); Red Blood Count 4.51 X10*6/uL (4.20-5.50); Red Cell Distribution Width 16.4 % (11.0-16.0); White Blood Count 6.9 X10*3/uL (4.8-10.8)
[2020-11-23 06:45] LABS: INTERNATIONAL NORM RATIO 1.3 (0.9-1.1); Prothrombin Time 14.4 SEC (9.9-13.0)
[2020-11-23 07:02] LABS: Alanine Aminotransferase 35 U/L (0-31); Albumin Level 3.2 g/dL (3.5-5.0); Alkaline Phosphatase 85 U/L (39-117); Anion Gap 14 (12-20); Aspartate Amino Transferase 43 U/L (5-31); Bilirubin Direct 0.4 mg/dL (0.0-0.5); Bilirubin Total 0.8 mg/dL (0.0-1.0); Blood Urea Nitrogen 27 mg/dL (9-16); Carbon Dioxide 22 mmol/L (22-29); Chloride 110 mmol/L (96-108); Creatinine Clr Calc Pharmacy 65.3; Estimated Glomerular Filt Rate 51; Glucose Fasting 71 mg/dL (60-99); Magnesium 1.8 mg/dL (1.6-2.6); Potassium 4.4 mmol/L (3.3-5.1); Sodium 142 mmol/L (135-145); Total Protein 6.8 g/dL (6.5-8.0)
[2020-11-23 07:48] VITALS: BP 191/88; PULSE 69; RESP 18; TEMP 36.3; O2SAT 98
[2020-11-23] MEDS: Metoprolol Tartrate 12.5 MG HALFTAB 37.5 MG PO ×2 (08:36→20:44)
[2020-11-23] MEDS: Rivaroxaban 10 MG TABLET PO (08:36)
[2020-11-23 08:52] LABS: Calcium (PTHI) 9.9 mg/dL (8.6-10.4); PTHI 14 pg/mL (14-64)
[2020-11-23 12:00] VITALS: BP 142/89; PULSE 66; RESP 16; TEMP 36.2; O2SAT 95
--- NOTE | 2020-11-23 14:06 | MHC.CM.PN ---
NURSE ASSISTANT PROFESSOR OF LIFE SCIENCES NOTE ELECTRONIC MEDICAL RECORD REVIEWED ALONG WITH CASE DISCUSSED ON MULTIPLE DISCIPLINARY ROUNDS, PATIENT WAS SENT IN FORM PENITENTIARY FACILITY SECONDARY TO LETHARGY Metabolic encephalopathy due to dehydration AND HYPERCALCEMIA UTI. PER DOCUMENTATION DISCHARGE PLAN- PATIENT WILL RETURN BACK TO [facility] VIA S PATIENTS SON IS [facility] [phone] CLINICAL UPDATE SENT TO [place]
--- NOTE | 2020-11-23 14:21 | P.PNIM_ITS ---
Subjective Subjective Date of Service: 11/23/20 Interval History: The patient was seen and evaluated this morning Laying in bed, looks lethargic and tired Denies any fever, chills or chest pain Moving all extremities with profound weakness No reported other overnight events. Systemic review: No fever, chills or weakness No chest pain, palpitation No shortness of breath or coughing No abdominal pain, nausea or vomiting No urinary symptoms Physical Exam Vital Signs: Vital Signs: Last Vital Signs Temp 97.1 F 11/23/20 12:00 Pulse 66 11/23/20 12:00 Resp 16 11/23/20 12:00 BP 142/89 H 11/23/20 12:00 Pulse Ox 95 11/23/20 12:00 Body Mass Index 43.9 Const: Other: Constitutional : Alert with stimulation, very weak and barely able to to toe walk and lethargic Neck : Normal inspection, Supple Cardiovascular : RRR, S1 S2, no lower extremity edema Respiratory : Good bilateral air entry, no crackles, wheezes or rhonchi Gastrointestinal: soft, lax, Normal bowel sounds, Non tender Skin : Warm/Dry, bilateral lower extremity chronic skin changes with no erythema tenderness Neurological : Alert with stimulation & oriented to self, No focal deficit Objective Data Current Medications Generic Name Dose Route Start Last Admin Trade Name Freq PRN Reason Stop Dose Admin Sodium Chloride 1,000 mls @ 100 mls/hr 11/20/20 17:45 11/23/20 11:12 Ns IVCONT 100 mls/hr .Q10H LAYA Administration Cefepime HCl 1 gm/ Sodium 50 mls @ 100 mls/hr 11/21/20 12:00 11/23/20 12:08 Chloride IV Infused Q8H LAYA Infusion Metoprolol Tartrate 37.5 mg 11/20/20 21:00 11/23/20 08:36 Metoprolol Tartrate 12.5 Mg Halftab PO 37.5 mg BID LAYA Administration Protocol Rivaroxaban 10 mg 11/21/20 09:00 11/23/20 08:36 Rivaroxaban 10 Mg Tablet PO 10 mg DAILY LAYA Administration Sodium Chloride 3 ml 11/21/20 00:00 11/23/20 08:37 0.9 % Sodium Chloride Flush 3 Ml Syringe IVFLUSH Not Given QSHIFT [facility] Labs CBC & Chem 7: 11/23/20 05:37 11/23/20 05:37 Labs: Laboratory Results - last 24 hr 11/21/20 11/23/20 11/23/20 07:07 05:37 05:37 WBC 6.9 RBC 4.51 Hgb 12.8 Hct 41.5 MCV 92.0 MCH 28.4 MCHC 30.8 L RDW 16.4 H Plt Count 219 MPV 9.1 L Absolute Nucleated RBC 0.000 Nucleated RBC % (auto) 0.0 PT 14.4 H INR 1.3 H Sodium Potassium Chloride Carbon Dioxide Anion Gap BUN Creatinine Estim Creat Clear Calc Estimated GFR Fasting Glucose Calcium Magnesium Total Bilirubin Direct Bilirubin AST ALT Alkaline Phosphatase Total Protein Albumin PTH Intact 14 Calcium (PTH Intact) 9.9 11/23/20 05:37 WBC RBC Hgb Hct MCV MCH MCHC RDW Plt Count MPV Absolute Nucleated RBC Nucleated RBC % (auto) PT INR Sodium 142 Potassium 4.4 Chloride 110 H Carbon Dioxide 22 Anion Gap 14 BUN 27 H Creatinine 1.05 Estim Creat Clear Calc 65.3 Estimated GFR 51 Fasting Glucose 71 Calcium 10.0 Magnesium 1.8 Total Bilirubin 0.8 Direct Bilirubin 0.4 AST 43 H ALT 35 H Alkaline Phosphatase 85 Total Protein 6.8 Albumin 3.2 L PTH Intact Calcium (PTH Intact) Microbiology Microbiology Results: Microbiology 11/21/20 Unknown Urine Culture - Final Urine clean catch - Clean Catch Midstream Quality Stroke Does the patient have a stroke diagnosis?: No VTE Prior VTE?: No VTE Risk Level:: Medical - moderate - high VTE Device Contraindication: Treatment Not Indicated VTE Drug Contraindication: N/A - Med Ordered Assessment and Plan (1) UTI (urinary tract infection): Status: Inactive Assessment and Plan: 80F sent in from SNF for lethargy metabolic encephalopathy due to dehydration/hypercalcemia/infection still very lethargic Multifactorial, poor intake from dementia and recent UTI, hypercalcemia from malignancy continue IVF Urine culture growing mixed bacteria Discontinue cefepime, Keep on ceftriaxone for now Uncontrolled blood pressure Systolic of 190 this morning continue Lopressor Monitor blood pressure HTN lopressor history of DM no longer on meds, a1c 5.5 CKD III stable
[2020-11-23 15:34] VITALS: BP 146/78; PULSE 116; RESP 18; TEMP 36.1; O2SAT 96
[2020-11-23] MEDS: cefTRIAXone sodium 1 GM in 0.9 % Sodium Chloride 50 ML IV (17:47)
[2020-11-23 19:25] VITALS: BP 130/66; PULSE 109; RESP 18; TEMP 36; O2SAT 93
[2020-11-23 20:44] VITALS: BP 130/66; PULSE 109
[2020-11-24] VITALS: BP 145/65; PULSE 64; RESP 16; TEMP 36.4; O2SAT 97
[2020-11-24] MEDS: 0.9 % Sodium Chloride 1,000 ML 100 ML IVCONT (00:45)
[2020-11-24 04:00] VITALS: BP 161/76; PULSE 115; RESP 16; TEMP 36.2; O2SAT 95
[2020-11-24 06:46] LABS: Hematocrit 36.7 % (37-47); Hemoglobin 11.5 g/dl (12.0-16.0); Mean Corpuscular HGB Conc 31.3 g/dl (31.0-35.0); Mean Corpuscular Hemoglobin 28.5 pg (27.0-33.0); Mean Corpuscular Volume 91.1 fL (80-98); Mean Platelet Volume 9.1 fL (9.4-12.3); Platelet Count 231 X10*3/uL (160-400); Red Blood Count 4.03 X10*6/uL (4.20-5.50); Red Cell Distribution Width 16.2 % (11.0-16.0)
[2020-11-24 06:54] LABS: Anion Gap 10 (12-20); Blood Urea Nitrogen 27 mg/dL (9-16); Calcium 9.2 mg/dL (8.4-10.2); Carbon Dioxide 22 mmol/L (22-29); Chloride 111 mmol/L (96-108); Creatinine Clr Calc Pharmacy 72.2; Estimated Glomerular Filt Rate 57; Glucose Random 86 mg/dL (60-115); Sodium 139 mmol/L (135-145)
[2020-11-24 07:48] VITALS: BP 135/60; PULSE 68; RESP 21; TEMP 36.6; O2SAT 97
[2020-11-24] MEDS: 0.9 % Sodium Chloride Flush 3 ML SYRINGE IVFLUSH (09:22)
[2020-11-24] MEDS: Rivaroxaban 10 MG TABLET PO (09:22)
[2020-11-24] MEDS: Metoprolol Tartrate 12.5 MG HALFTAB 37.5 MG PO (09:22)
--- NOTE | 2020-11-24 11:05 | P.DS_ITS ---
DS: Providers Provider Date of Service: 11/24/20 Date of admission: 11/20/20 17:40 Primary care physician: Smiley Valdes MD Consults: 11/21/20 09:18 Consult to Cardiology Routine Consulting Provider: Marlo Branch Reason for consultation: aflutter DS: Diagnosis Discharge Diagnosis (1) UTI (urinary tract infection): Status: Inactive (2) Sinus tachycardia: Status: Acute (3) AMS (altered mental status): Status: Acute DS: Medications Discharge Medications Home Medications: Home Medications Medication Instructions Recorded Confirmed metoprolol tartrate 50 mg tablet 37.5 mg PO BID 02/26/20 11/20/20 Previous Rx's Medication Instructions Recorded docusate sodium 100 mg PO DAILY PRN #30 cap 09/29/20 nystatin 1 appl TOPICAL BID #5 g 09/29/20 cefuroxime axetil 250 mg PO Q12H #4 tab 11/24/20 DS: Summary Hospital Course Hospital Course: Admission note HPI [id number] sent in by correction for lethargy. patient just completed 7 day course of antibiotics for pseudomonal UTI. But has not had improvement in mental status or oral intake. Patient herself is very confused due to baseline dementia and is unable to give a good history. In ED noted to have signs of dehydration with hypercalcemia. She was given IV fluids and Zosyn. UA and cultures are pending. patient states that she has generalized body aches, but otherwise has no specific complaints. Hospital course Patient was admitted for evaluation of altered mentation and evidence of mild hypercalcemia. Treated with IV fluids and antibiotics with good response over the course of hospital stay as calcium level returned back to normal and her mentation improved back to baseline. Urine culture grew mixed bacteria and cefepime was changed to ceftriaxone. To be discharged on 2 more days of Ceftin p.o.. Time Spent with Patient Time attestation: Total time spent providing and/or coordinating discharge services: Discharge coordination time: Greater than 30 minutes Quality: Stroke Does the patient have a stroke diagnosis?: No Physical Exam Vital Signs: Vital Signs: Last Vital Signs Temp 97.8 F 11/24/20 07:48 Pulse 68 11/24/20 07:48 Resp 21 H 11/24/20 07:48 BP 135/60 11/24/20 07:48 Pulse Ox 97 11/24/20 07:48 Body Mass Index 43.9 Const: Other: Constitutional : Alert with stimulation, very weak and barely able to to toe walk and lethargic Neck : Normal inspection, Supple Cardiovascular : RRR, S1 S2, no lower extremity edema Respiratory : Good bilateral air entry, no crackles, wheezes or rhonchi Gastrointestinal: soft, lax, Normal bowel sounds, Non tender Skin : Warm/Dry, bilateral lower extremity chronic skin changes with no erythema tenderness Neurological : Alert with stimulation & oriented to self, No focal deficit DS: Data Data Completed and Pending Labs on day of discharge: Laboratory Results - last 24 hr 11/24/20 11/24/20 05:58 05:58 WBC 7.0 RBC 4.03 L Hgb 11.5 L Hct 36.7 L MCV 91.1 MCH 28.5 MCHC 31.3 RDW 16.2 H Plt Count 231 MPV 9.1 L Absolute Nucleated RBC 0.000 Nucleated RBC % (auto) 0.0 Sodium 139 Potassium 4.0 Chloride 111 H Carbon Dioxide 22 Anion Gap 10 L BUN 27 H Creatinine 0.95 Estim Creat Clear Calc 72.2 Estimated GFR 57 Random Glucose 86 Calcium 9.2 D Imaging Chest x-ray: Radiologist's impression: ITS Impressions Chest X-Ray 11/20/20 15:02 IMPRESSION: Hypoexpanded lungs without acute process. Abdomen/Pelvis CT 11/20/20 18:47 IMPRESSION: 1. Bilateral hydronephrosis of kidneys. This appears to be chronic with cortical thinning of each kidney which has progressed since 2017.. The right is worse than the left. No ureteral stone. There is a small nonobstructive stone in the right kidney. 2. Diverticulosis of colon but no acute abnormality of the bowel. No diverticulitis. 3. Cholelithiasis. 4. Right adnexal cyst. This is not substantially changed since prior CAT scan of October 07, 2016. This is almost only benign. Annual follow-up pelvic ultrasound recommended. 5. Ventral wall hernia stable since prior CAT scan 2016. Venous Duplex 11/21/20 19:11 IMPRESSION: Exam is limited. No evidence of deep vein thrombosis in the imaged portions of the thigh. Discharge Plan Discharge Patient Disposition: [facility] Discharge Diagnosis: UTI, hypercalcemia, altered mentation Referrals: Smiley Valdes MD [Primary Care Provider] - 1 Week Discharge Medications: New cefuroxime axetil 250 mg tablet 250 mg PO Q12H Qty: 4 RF: 0 Continued docusate sodium 100 mg Capsule 100 mg PO DAILY PRN (Reason: Constipation) Qty: 30 RF: 0 nystatin 100,000 unit/gram Powder 1 appl topical BID Qty: 5 RF: 0 metoprolol tartrate 50 mg tablet 37.5 mg PO BID RF: 0 Discharge Orders: Discharge Order (Routine); Ordered 11/24/20 Ordered By: Osiris Merrill Diet: advance to usual diet Activity on Discharge: As tolerated Stand Alone Forms: Patient Portal Discharge page Care Plan Goals: Read below Health Concerns: Read below Plan of Treatment: You were admitted to the hospital for evaluation of lethargy and altered mentation. Treated for urinary tract infection with good response. Assessment: Continue Ceftin for 2 more days
[2020-11-24 11:57] VITALS: BP 139/66; PULSE 58; RESP 18; TEMP 36.6; O2SAT 96
[2020-11-24 12:25] LABS: COVID-19 Test Negative (Negative)
--- NOTE | 2020-11-24 14:35 | MHC.CM.PN ---
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 i have called patients son x2 once in the morning and once in the afternoon [phone] requested call back to i can give him a update . message left on voice mail that patient is expected to be trqnsported to [facility] facility around 4pm , also asked if they had any alternate phone numbers that i could reahc him at . transported via [facility]
--- NOTE | 2020-11-24 15:51 | MHC.CM.PN ---
NURSE RAG WASHER NOTE RECEIVED ANOTHER CONTACT FAMILY MEMBER FORM THE NURSING FACILITY HER DAUGHTER RICARDO [phone]. I CALLED HER AND INFORMED HER THAT PATIENT MEGHA BE DISCHARGED BACK TO [facility] WHERE SHE RESIDES ON [employer] CARE TO BE TRANSPORTED BETWEEN 4;30 nd 5pm [facility] nursing note
[2020-11-24 16:00] VITALS: BP 151/52; PULSE 67; RESP 16; TEMP 36.6; O2SAT 96
== END 2020-11-24 17:40 | disposition skilled nursing facility (03) | DRG 689 ==
LOC: HO.ED 15:11 → HO.EDOVER 18:11 → HO.S3 11-21 12:00
PROVIDERS: Admitting Provider Internal Medicine; Emergency Provider Emergency Medicine; PCP Internal Medicine; Visit Provider Student in an Organized Health Care Education/Training Program
DX: N39.0 Urinary tract infection, site not specified (principal); G93.41 Metabolic encephalopathy; C67.9 Malignant neoplasm of bladder, unspecified; I12.9 Hypertensive chronic kidney disease with stage 1 through stage 4 chronic kidney disease, or unspecified chronic kidney disease; R00.0 Tachycardia, unspecified; E11.22 Type 2 diabetes mellitus with diabetic chronic kidney disease; N18.30 Chronic kidney disease, stage 3 unspecified; E83.52 Hypercalcemia; E86.0 Dehydration; Z20.822 Contact with and (suspected) exposure to COVID-19; Z88.5 Allergy status to narcotic agent; Z79.899 Other long term (current) drug therapy
CPT/HCPCS: 36415; 71045; 74176; 80048; 80053; 80076; 80185; 81001; 81003; 83605; 83735; 83970; 84443; 84484; 85007; 85027; 85610; 87086; 87635; 93005; 93970; 99285; J0692; J0696; J2543